=== PATIENT | female | born 1970 | race Caucasian/White ===

== ENCOUNTER 2016-08-30 09:11 | Emergency (ER) | payer BC ==
--- NOTE | 2016-08-30 12:30 | DIAGNOSTIC IMAGING REPORT ---
PROCEDURE: CT SINUS/FACIAL BONES W/CONT CLINICAL INDICATION: Left facial redness, initial encounter TECHNIQUE: 90 ml of Isovue 300 injected intravenously and axial images were obtained through the face with coronal reformations. COMPARISON: None. FINDINGS: Mild left periorbital preseptal soft tissue swelling. No evidence of an abscess. Globes and orbits are unremarkable. Nonspecific bilateral cervical lymph nodes measure 8 mm or less (short axis). Normal parotids. No evidence of a mass. Visualized brain parenchyma is unremarkable. Moderate left and mild right maxillary sinus disease. Normal TMJs. IMPRESSION: 1. Mild left periorbital preseptal soft tissue swelling without evidence of an abscess. 2. Bilateral maxillary sinus disease 3. Results discussed with Dr. Fernandes All CT scans at this facility use dose modulation, iterative reconstruction, and/or weight-based dosing when appropriate to reduce radiation dose to as low as reasonably achievable.
--- NOTE | 2016-08-30 15:03 | ED CLINICAL REPORT ---
Clinical Report - Physicians/Mid Levels [facility] [address] [place] [address] 08/30/2016 9:11 [id number] Time Seen: 10:15 Aug 30 2016. Arrived- By private vehicle. Historian- patient. CPT: ER phys charges level 4 (#[id number]). HISTORY OF PRESENT ILLNESS Chief Complaint: EYE PAIN. 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 The patient may have sustained an injury. This occurred at work. She has foreign material in the eye. Eye pain, discomfort, burning, redness and irritation. A moderate amount of thick discharge from the left eye with matting. Similar symptoms previously: Twice. Evaluation/treatment- Seen 4 days ago Thu and given gent eye drops. Seen 2 days later and found no better so given oxyfloxacin drops and oral keflex 500 bid. Pt started these yesterday, Thursday. Diagnosis: eye infection and conjunctivitis. REVIEW OF SYSTEMS No fever or sore throat. PAST HISTORY Hypertension. Abdominal Pain. Gastroenteritis. Endometriosis. Pseudotumor cerberi. Migraine Headache. Pyelonephritis. Bicuspid aortic valve. Asthma. --09:48 Arianna Farley R.N. ADDITIONAL SURGERIES: Hysterectomy. Knee Surgery. Laparoscopy. Shoulder Surgery. Medications: Vitamins/Minerals Oral. Garlic Oral. Co Q-10 Oral. Aspir-81 Oral daily. Metoprolol 25mg at bedtime. Cephalexin Oral 500 mg, 2x a day. Ofloxacin Ophthalmic (Solution 0.3 %) 2 drops, x4 daily. Allergies: Headache medications. Pain medications. Valium. SOCIAL HISTORY Never smoker. Occasional alcohol use. No drug use. ADDITIONAL NOTES The nursing notes have been reviewed. PHYSICAL EXAM Vital Signs: 08/30/2016 09:39 BP: 130/90. HR: 88. RR: 16. O2 saturation: 100%. Temp: 98.2 F. Appearance: Alert. HEENT: Ears normal. Nose normal. Pharynx normal. Head appears normal to external inspection. Rt Eye: Right eye exam normal. Eyes: Visual acuity noted- see nurse's notes. Left eyelid everted for examination. Left cornea examined with fluorescein stain. Corneas appear normal to inspection. Pupils equal, round and reactive to light. Accommodation normal. EOMs intact. Periorbital areas appear normal to inspection. Anterior chambers clear. Anterior chambers of normal depth. Lt Eye: Conjunctival edema. Injected conjunctiva. Exudate present. No eyelid edema or erythema, subconjunctival hemorrhage, conjunctival foreign body or injury to the conjunctiva. No foreign body under the eyelid. Neck: Neck supple. CVS: Normal heart rate and rhythm. Respiratory: No respiratory distress. Skin: No rash. Neuro: Oriented X 3. LABS, X-RAYS, AND EKG Note - Tests: (CT facial: mild pre-septal edema consistent with cellulitis). PROGRESS AND PROCEDURES Course of Care: Mild periorbital cellulits. No lid edema but initial treatment failure. IV NS Demerol 25 mg IV Clindamycin 600 mg IV Patient is stable. Patient/family counseled. Disposition: Discharged. Condition: stable. CLINICAL IMPRESSION Acute mucopurulent conjunctivitis of the left eye (severe and unresponsive to out patient medications.). INSTRUCTIONS (Increase your keflex to 2 pills twice a day.). Warnings: Further evaluation is necessary. GENERAL WARNINGS: Return or contact your physician immediately if your condition worsens or changes unexpectedly, if not improving as expected, or if other problems arise. Your Current Medications: STOP TAKING THE FOLLOWING MEDICATIONS: Ofloxacin Ophthalmic : Solution 0.3 %, 2 drops x4 daily. CONTINUE TAKING THE FOLLOWING MEDICATIONS: Aspir-81 Oral : daily. Cephalexin Oral : 500 mg 2x a day. Co Q-10 Oral. Garlic Oral. Metoprolol 25mg at bedtime*. Vitamins/Minerals Oral. Prescription Medications: Sulamyd ophthalmic solution 10% : Instill 2 drops into affected eye every 2 hours while awake for 1 week. Dispense fifteen (15) mL. No refills. Substitution is permissible. Oxycodone/APAP 5 mg/325 mg: take 1-2 tablets orally every 4 hours as needed for pain. Dispense fifteen (15). No refill. Bactrim DS 800 mg / 160 mg: Take 1 tablet orally every 12 hours for 7 days. Dispense fourteen (14). No refills. Substitution is permissible. 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 Understanding of the discharge instructions verbalized by patient and family. Discharge instructions reviewed with and understanding was verbalized by spouse. (Electronically signed by Ramiro Fernandes MD 09/01/2016 11:26)
--- NOTE | 2016-08-30 15:03 | ED ORDER SUMMARY ---
..... Patient: PANDA SNYDER OrderSheet [facility] VisitID: [id number] [place] [address] 46y, F Registration Date/Time: 08/30/2016 ORDER SHEET Weight: 145.1 kg (stated) Allergies: Pain medications, Valium, Headache medications GENERAL ORDERS: CT Sinus/Facial Bones w Cont (left periorbital cellulitis) Urgent (10:08/30/2016 Elda ENGLAND) (Ack 10:33 LTapper) (12:30 SReitz R.N.) CBC w Diff Urgent (10:08/30/2016 Elda ENGLAND) (Ack 10:33 LTapper) (10:55 KWilliams R.N.) CRP Urgent (10:08/30/2016 Elda ENGLAND) (Ack 10:33 LTapper) (10:55 Janethams R.N.) PCT (Procalcitonin) Urgent (10:08/30/2016 Elda ENGLAND) (Ack 10:33 LTapper) (10:55 KWtachoams R.N.) BMP Urgent (10:08/30/2016 Elda ENGLAND) (Ack 10:33 LTapper) (10:55 KWtachoams R.N.) MEDICATION ORDERS: Proparacaine Eye Drops (Solution 0.5 %) 2 drops (left eye) (10:30 08/30/2016 Elda ENGLAND) (Ack 10:32 Renata R.N.) (10:45 Renata R.N.) IV FLUIDS: IV NS : initial bolus none -, then 125 mL/hr for X1 (NOW); Routine (10:30 08/30/2016 Elda ENGLAND) (Ack 10:32 Renata R.N.) (10:56 Aniket R.N.) Clindamycin IV 600 mg/50mL (NOW) (12:50 08/30/2016 Elda ENGLAND) (Ack 12:53 Renata R.N.) (13:45 Rito R.N.) Demerol IV 25 mg (NOW) (12:57 08/30/2016 Elda ENGLAND) ([facility] 13:35 Renata R.NLarry) (13:41 Renata Fenton.Henry.) ORDER SHEET NOTES: [Electronically signed by Eyal John R.N. (15:33 08/30/2016)] [Electronically signed by Ramiro Fernandes MD (11:26 09/01/2016)] [Electronically locked/signed by Eyal John R.N. (15:33 08/30/2016)]
--- NOTE | 2016-08-30 15:03 | ED ORDER SUMMARY ---
..... Patient: PANDA SNYDER OrderSheet [facility] VisitID: [id number] [place] [address] 46y, F Registration Date/Time: 08/30/2016 ORDER SHEET Weight: 145.1 kg (stated) Allergies: Pain medications, Valium, Headache medications GENERAL ORDERS: CT Sinus/Facial Bones w Cont (left periorbital cellulitis) Urgent (10:08/30/2016 Elda ENGLAND) (Ack 10:33 LTapper) (12:30 SReitz R.N.) CBC w Diff Urgent (10:08/30/2016 Elda ENGLAND) (Ack 10:33 LTapper) (10:55 KWilliams R.N.) CRP Urgent (10:08/30/2016 Elda ENGLAND) (Ack 10:33 LTapper) (10:55 Janethams R.N.) PCT (Procalcitonin) Urgent (10:08/30/2016 Elda ENGLAND) (Ack 10:33 LTapper) (10:55 KWtachoams R.N.) BMP Urgent (10:08/30/2016 Elda ENGLAND) (Ack 10:33 LTapper) (10:55 KWtachoams R.N.) MEDICATION ORDERS: Proparacaine Eye Drops (Solution 0.5 %) 2 drops (left eye) (10:30 08/30/2016 Elda ENGLAND) (Ack 10:32 Renata R.N.) (10:45 Renata R.N.) IV FLUIDS: IV NS : initial bolus none -, then 125 mL/hr for X1 (NOW); Routine (10:30 08/30/2016 Elda ENGLAND) (Ack 10:32 Renata R.N.) (10:56 Aniket R.N.) Clindamycin IV 600 mg/50mL (NOW) (12:50 08/30/2016 Elda ENGLAND) (Ack 12:53 Renata R.N.) (13:45 Rito R.N.) Demerol IV 25 mg (NOW) (12:57 08/30/2016 Elda ENGLAND) ([facility] 13:35 Renata R.NLarry) (13:41 Renata Fenton.Henry.) ORDER SHEET NOTES: [Electronically signed by Eyal John R.N. (15:33 08/30/2016)] [Electronically signed by Ramiro Fernandes MD (11:26 09/01/2016)] [Electronically locked/signed by Eyal John R.N. (15:33 08/30/2016)]
--- NOTE | 2016-08-30 15:03 | ED NURSING NOTES ---
Clinical Report - Nurses [facility] [address] [place] [address] 08/30/2016 9:11 [id number] Triage time 09:39. Acuity: LEVEL 4. Chief Complaint: REDNESS and PAIN TO LEFT EYE. ("blisters in eye"). Alert. No acute distress. ( Pt. was seen at PCP and treated for pink eye. She is currently taking antibiotics and tetrahydrozoline for this. She is here today because she is not feeling any better.). SEPSIS SCREEN: Sepsis Screen. Negative (no infection suspected/documented). [place] COMA SCORE: [place] Coma Scale: 15- eyes open spontaneously (4); best verbal response- oriented x 4 (5); best motor response- obeys commands (6). --09:48 Arianna Farley R.N. 09:39 08/30/16. BP: 130/90. HR: 88. RR: 16. O2 saturation: 100%. Temp: 98.2 F. Pain level now 8/10. --09:48 Arianna Farley R.N. Weight: 145.1 kg stated. Height/Length: 72 inches Per Patient. BMI: 43.4. --09:42 Arianna Farley R.N. Medications Ofloxacin Ophthalmic (Solution 0.3 %) 2 drops, x4 daily. --09:45 Arianna Farley R.N. Cephalexin Oral 500 mg, 2x a day. --09:45 Arianna Farley R.N. Metoprolol 25mg at bedtime. --09:46 Arianna Farley R.N. Aspir-81 Oral daily. --09:46 Arianna Farley R.N. Co Q-10 Oral. --09:46 Arianna Farley R.N. Garlic Oral. --09:46 Arianna Farely R.N. Vitamins/Minerals Oral. --09:46 Arianna Farley R.N. Allergies Pain medications. --09:46 Arianna Farley R.N. Valium. --09:47 Arianna Farley R.N. Headache medications. --09:47 Arianna Farley R.N. History Arrived by private vehicle. Historian: patient. Accompanied by family. Primary physician (Olivia). Onset. (4 days ago). She did not sustain an injury. 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 PAST MEDICAL HX: Immunizations: up-to-date. SOCIAL HX: Never smoker. Occasional alcohol use. No drug use. No infectious disease exposure. ABUSE ASSESSMENT: Abuse assessment: The patient was asked "Do you feel safe in your home?" and "Has anyone hurt you or threatened to hurt you?". No report of abuse. SELF HARM ASSESSMENT: A self harm assessment was performed. The patient answered "no" to the question "Are you here because you tried to hurt yourself?" and "Have you recently had thoughts about harming or killing others?". NUTRITIONAL RISK ASSESSMENT: The nutritional risk assessment revealed no deficiencies. FUNCTIONAL ASSESSMENT: Functional assessment: no impairments noted. LEARNING NEEDS ASSESSMENT: The learning needs assessment revealed no barriers. --09:48 Arianna Farley R.N. PROBLEMS: Hypertension. Abdominal Pain. Gastroenteritis. Endometriosis. Pseudotumor cerberi. Migraine Headache. Pyelonephritis. Bicuspid aortic valve. Asthma. --09:48 Arianna Farley R.N. ADDITIONAL SURGERIES: Hysterectomy. Knee Surgery. Laparoscopy. Shoulder Surgery. --09:48 Arianna Farley R.N. Interventions ID band on patient. Ambulatory. --09:48 Arianna Farley R.N. PHYSICAL ASSESSMENT Ambulatory to room. GENERAL / NEURO / PSYCH: Alert. Appears in no acute distress. --09:48 Arianna Farley R.N. NURSING PROGRESS NOTES Head of bed elevated. Two patient identifiers checked. Call light placed in reach. Side rails up x 2. Bed placed in lowest position. Brakes of bed on. Patient ready for evaluation- chart flagged. --09:49 Arianna Farley R.N. 10:40 08/30/2016 One (1) unsuccessful IV access attempt including the left antecubital space. --10:45 Arianna Farley R.N. 10:45 08/30/2016 Proparacaine Eye Drops 2 drop given. Given in the left eye. Allergies verified and confirmed 5 rights. --10:45 Arianna Farley R.N. Patient and family informed about reason for wait and about plan of care. --10:45 Arianna Farley R.N. 10:51 08/30/2016 Site #1 started via IV in the left antecubital space with an 18g angiocath, with aseptic technique and good blood return; one attempt. Blood drawn: rainbow set. Labeled in the presence of the patient and sent to the lab. Saline lock flushed with 10 mL saline (IV ultrasound guidance x20 minutes). --10:56 Eyal John R.N. 10:51 08/30/2016 Started bag #1 1000 mL IV Fluids IV NS (Saline); at 125 mL/hr over 8 hour(s) via site #1. Allergies verified and confirmed 5 rights. IV patency established. IV site checked: no pain, redness, or swelling. IV flushed thoroughly pre- and post-medication administration. --10:56 Eyal John R.N. 11:34 08/30/16. BP: 150/98. HR: 80. RR: 20. O2 saturation: 100%. --11:35 Kamilla Obrien R.N. 12:00 08/30/2016 IV Fluids IV NS Discontinued: bag #1 infused. Total amount infused: 1000 mL. IV patency established. IV site checked: no pain, redness, or swelling. IV flushed thoroughly. --13:42 Arianna Farley R.N. 13:41 08/30/2016 Demerol (Meperidine HCl) IVP 25 mg given over 1 minute(s) via site #1. Allergies verified and confirmed 5 rights. IV patency established. IV site checked: no pain, redness, or swelling. IV flushed thoroughly pre- and post-medication administration. --13:41 Arianna Farley R.N. 13:42 08/30/16. BP: 109/76. HR: 73. RR: 16. O2 saturation: 100%. --13:42 Arianna Farley R.N. 13:00 08/30/2016 Started 600 mg of Clindamycin IVPB in bag #1 50 mL; at 100 mL/hr over 30 minute(s) via site #1 via IV pump. Allergies verified and confirmed 5 rights. IV patency established. IV site checked: no pain, redness, or swelling. IV flushed thoroughly pre- and post-medication administration. Completed per protocol. --13:45 Neda Raygoza R.N. 13:30 08/30/2016 Clindamycin IVPB Discontinued: bag #1 infused. Total amount infused: 50 mL. IV patency established. IV site checked: no pain, redness, or swelling. IV flushed thoroughly. --13:45 Neda Raygoza R.N. DISPOSITION / DISCHARGE 15:17. Departure time: 1516. No learning barriers present. Discharge instructions provided and reviewed with the patient and spouse. Reviewed medication(s) side effects, precautions, dosing and course information. Prescription(s) given to the patient. Patient verbalized understanding. Written instructions provided in [place] [employer]. ( verbalizes understanding to increase keflex to 2 pills BID per discharge instructions/Dr eFrnandes.). The patient was discharged by the physician. She was discharged home and accompanied by spouse. She left the Emergency Department ambulatory and via private vehicle. Spouse driving. --15:18 Eyal John R.N. 15:17 08/30/16. BP: 131/70. HR: 75. RR: 18. O2 saturation: 98% on room air. Temp: 98.7 F (oral). Pain level now 310. --15:18 Eyal John R.N. 15:15 08/30/2016 Site #1 removed upon discharge. Catheter intact. Bandage applied. --15:32 Eyal John R.N. Locked/Released at 08/30/2016 15:33 by Eyal John R.N.
--- NOTE | 2016-08-30 15:03 | ED CLINICAL REPORT ---
Clinical Report - Physicians/Mid Levels [facility] [address] [place] [address] 08/30/2016 9:11 [id number] Time Seen: 10:15 Aug 30 2016. Arrived- By private vehicle. Historian- patient. CPT: ER phys charges level 4 (#[id number]). HISTORY OF PRESENT ILLNESS Chief Complaint: EYE PAIN. 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 The patient may have sustained an injury. This occurred at work. She has foreign material in the eye. Eye pain, discomfort, burning, redness and irritation. A moderate amount of thick discharge from the left eye with matting. Similar symptoms previously: Twice. Evaluation/treatment- Seen 4 days ago Thu and given gent eye drops. Seen 2 days later and found no better so given oxyfloxacin drops and oral keflex 500 bid. Pt started these yesterday, Thursday. Diagnosis: eye infection and conjunctivitis. REVIEW OF SYSTEMS No fever or sore throat. PAST HISTORY Hypertension. Abdominal Pain. Gastroenteritis. Endometriosis. Pseudotumor cerberi. Migraine Headache. Pyelonephritis. Bicuspid aortic valve. Asthma. --09:48 Arianna Farley R.N. ADDITIONAL SURGERIES: Hysterectomy. Knee Surgery. Laparoscopy. Shoulder Surgery. Medications: Vitamins/Minerals Oral. Garlic Oral. Co Q-10 Oral. Aspir-81 Oral daily. Metoprolol 25mg at bedtime. Cephalexin Oral 500 mg, 2x a day. Ofloxacin Ophthalmic (Solution 0.3 %) 2 drops, x4 daily. Allergies: Headache medications. Pain medications. Valium. SOCIAL HISTORY Never smoker. Occasional alcohol use. No drug use. ADDITIONAL NOTES The nursing notes have been reviewed. PHYSICAL EXAM Vital Signs: 08/30/2016 09:39 BP: 130/90. HR: 88. RR: 16. O2 saturation: 100%. Temp: 98.2 F. Appearance: Alert. HEENT: Ears normal. Nose normal. Pharynx normal. Head appears normal to external inspection. Rt Eye: Right eye exam normal. Eyes: Visual acuity noted- see nurse's notes. Left eyelid everted for examination. Left cornea examined with fluorescein stain. Corneas appear normal to inspection. Pupils equal, round and reactive to light. Accommodation normal. EOMs intact. Periorbital areas appear normal to inspection. Anterior chambers clear. Anterior chambers of normal depth. Lt Eye: Conjunctival edema. Injected conjunctiva. Exudate present. No eyelid edema or erythema, subconjunctival hemorrhage, conjunctival foreign body or injury to the conjunctiva. No foreign body under the eyelid. Neck: Neck supple. CVS: Normal heart rate and rhythm. Respiratory: No respiratory distress. Skin: No rash. Neuro: Oriented X 3. LABS, X-RAYS, AND EKG Note - Tests: (CT facial: mild pre-septal edema consistent with cellulitis). PROGRESS AND PROCEDURES Course of Care: Mild periorbital cellulits. No lid edema but initial treatment failure. IV NS Demerol 25 mg IV Clindamycin 600 mg IV Patient is stable. Patient/family counseled. Disposition: Discharged. Condition: stable. CLINICAL IMPRESSION Acute mucopurulent conjunctivitis of the left eye (severe and unresponsive to out patient medications.). INSTRUCTIONS (Increase your keflex to 2 pills twice a day.). Warnings: Further evaluation is necessary. GENERAL WARNINGS: Return or contact your physician immediately if your condition worsens or changes unexpectedly, if not improving as expected, or if other problems arise. Your Current Medications: STOP TAKING THE FOLLOWING MEDICATIONS: Ofloxacin Ophthalmic : Solution 0.3 %, 2 drops x4 daily. CONTINUE TAKING THE FOLLOWING MEDICATIONS: Aspir-81 Oral : daily. Cephalexin Oral : 500 mg 2x a day. Co Q-10 Oral. Garlic Oral. Metoprolol 25mg at bedtime*. Vitamins/Minerals Oral. Prescription Medications: Sulamyd ophthalmic solution 10% : Instill 2 drops into affected eye every 2 hours while awake for 1 week. Dispense fifteen (15) mL. No refills. Substitution is permissible. Oxycodone/APAP 5 mg/325 mg: take 1-2 tablets orally every 4 hours as needed for pain. Dispense fifteen (15). No refill. Bactrim DS 800 mg / 160 mg: Take 1 tablet orally every 12 hours for 7 days. Dispense fourteen (14). No refills. Substitution is permissible. 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 Understanding of the discharge instructions verbalized by patient and family. Discharge instructions reviewed with and understanding was verbalized by spouse. (Electronically signed by Ramiro Fernandes MD 09/01/2016 11:26)
--- NOTE | 2016-08-30 15:03 | ED NURSING NOTES ---
Clinical Report - Nurses [facility] [address] [place] [address] 08/30/2016 9:11 [id number] Triage time 09:39. Acuity: LEVEL 4. Chief Complaint: REDNESS and PAIN TO LEFT EYE. ("blisters in eye"). Alert. No acute distress. ( Pt. was seen at PCP and treated for pink eye. She is currently taking antibiotics and tetrahydrozoline for this. She is here today because she is not feeling any better.). SEPSIS SCREEN: Sepsis Screen. Negative (no infection suspected/documented). [place] COMA SCORE: [place] Coma Scale: 15- eyes open spontaneously (4); best verbal response- oriented x 4 (5); best motor response- obeys commands (6). --09:48 Arianna Farley R.N. 09:39 08/30/16. BP: 130/90. HR: 88. RR: 16. O2 saturation: 100%. Temp: 98.2 F. Pain level now 8/10. --09:48 Arianna Farley R.N. Weight: 145.1 kg stated. Height/Length: 72 inches Per Patient. BMI: 43.4. --09:42 Arianna Farley R.N. Medications Ofloxacin Ophthalmic (Solution 0.3 %) 2 drops, x4 daily. --09:45 Arianna Farley R.N. Cephalexin Oral 500 mg, 2x a day. --09:45 Arianna Farley R.N. Metoprolol 25mg at bedtime. --09:46 Arianna Farley R.N. Aspir-81 Oral daily. --09:46 Arianna Farley R.N. Co Q-10 Oral. --09:46 Arianna Farley R.N. Garlic Oral. --09:46 Arianna Farley R.N. Vitamins/Minerals Oral. --09:46 Arianna Farley R.N. Allergies Pain medications. --09:46 Arianna Farley R.N. Valium. --09:47 Arianna Farley R.N. Headache medications. --09:47 Arianna Farley R.N. History Arrived by private vehicle. Historian: patient. Accompanied by family. Primary physician (Olivia). Onset. (4 days ago). She did not sustain an injury. 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 PAST MEDICAL HX: Immunizations: up-to-date. SOCIAL HX: Never smoker. Occasional alcohol use. No drug use. No infectious disease exposure. ABUSE ASSESSMENT: Abuse assessment: The patient was asked "Do you feel safe in your home?" and "Has anyone hurt you or threatened to hurt you?". No report of abuse. SELF HARM ASSESSMENT: A self harm assessment was performed. The patient answered "no" to the question "Are you here because you tried to hurt yourself?" and "Have you recently had thoughts about harming or killing others?". NUTRITIONAL RISK ASSESSMENT: The nutritional risk assessment revealed no deficiencies. FUNCTIONAL ASSESSMENT: Functional assessment: no impairments noted. LEARNING NEEDS ASSESSMENT: The learning needs assessment revealed no barriers. --09:48 Arianna Farley R.N. PROBLEMS: Hypertension. Abdominal Pain. Gastroenteritis. Endometriosis. Pseudotumor cerberi. Migraine Headache. Pyelonephritis. Bicuspid aortic valve. Asthma. --09:48 Arianna Farley R.N. ADDITIONAL SURGERIES: Hysterectomy. Knee Surgery. Laparoscopy. Shoulder Surgery. --09:48 Arianna Farley R.N. Interventions ID band on patient. Ambulatory. --09:48 Arianna Farley R.N. PHYSICAL ASSESSMENT Ambulatory to room. GENERAL / NEURO / PSYCH: Alert. Appears in no acute distress. --09:48 Arianna Farley R.N. NURSING PROGRESS NOTES Head of bed elevated. Two patient identifiers checked. Call light placed in reach. Side rails up x 2. Bed placed in lowest position. Brakes of bed on. Patient ready for evaluation- chart flagged. --09:49 Arianna Farley R.N. 10:40 08/30/2016 One (1) unsuccessful IV access attempt including the left antecubital space. --10:45 Arianna Farley R.N. 10:45 08/30/2016 Proparacaine Eye Drops 2 drop given. Given in the left eye. Allergies verified and confirmed 5 rights. --10:45 Arianna Farley R.N. Patient and family informed about reason for wait and about plan of care. --10:45 Arianna Farley R.N. 10:51 08/30/2016 Site #1 started via IV in the left antecubital space with an 18g angiocath, with aseptic technique and good blood return; one attempt. Blood drawn: rainbow set. Labeled in the presence of the patient and sent to the lab. Saline lock flushed with 10 mL saline (IV ultrasound guidance x20 minutes). --10:56 Eyal John R.N. 10:51 08/30/2016 Started bag #1 1000 mL IV Fluids IV NS (Saline); at 125 mL/hr over 8 hour(s) via site #1. Allergies verified and confirmed 5 rights. IV patency established. IV site checked: no pain, redness, or swelling. IV flushed thoroughly pre- and post-medication administration. --10:56 Eyal John R.N. 11:34 08/30/16. BP: 150/98. HR: 80. RR: 20. O2 saturation: 100%. --11:35 Kamilla Obrien R.N. 12:00 08/30/2016 IV Fluids IV NS Discontinued: bag #1 infused. Total amount infused: 1000 mL. IV patency established. IV site checked: no pain, redness, or swelling. IV flushed thoroughly. --13:42 Arianna Farley R.N. 13:41 08/30/2016 Demerol (Meperidine HCl) IVP 25 mg given over 1 minute(s) via site #1. Allergies verified and confirmed 5 rights. IV patency established. IV site checked: no pain, redness, or swelling. IV flushed thoroughly pre- and post-medication administration. --13:41 Arianna Farley R.N. 13:42 08/30/16. BP: 109/76. HR: 73. RR: 16. O2 saturation: 100%. --13:42 Arianna Farley R.N. 13:00 08/30/2016 Started 600 mg of Clindamycin IVPB in bag #1 50 mL; at 100 mL/hr over 30 minute(s) via site #1 via IV pump. Allergies verified and confirmed 5 rights. IV patency established. IV site checked: no pain, redness, or swelling. IV flushed thoroughly pre- and post-medication administration. Completed per protocol. --13:45 Neda Raygoza R.N. 13:30 08/30/2016 Clindamycin IVPB Discontinued: bag #1 infused. Total amount infused: 50 mL. IV patency established. IV site checked: no pain, redness, or swelling. IV flushed thoroughly. --13:45 Neda Raygoza R.N. DISPOSITION / DISCHARGE 15:17. Departure time: 1516. No learning barriers present. Discharge instructions provided and reviewed with the patient and spouse. Reviewed medication(s) side effects, precautions, dosing and course information. Prescription(s) given to the patient. Patient verbalized understanding. Written instructions provided in Danish. ( verbalizes understanding to increase keflex to 2 pills BID per discharge instructions/Dr Fernandes.). The patient was discharged by the physician. She was discharged home and accompanied by spouse. She left the Emergency Department ambulatory and via private vehicle. Spouse driving. --15:18 Eyal John R.N. 15:17 08/30/16. BP: 131/70. HR: 75. RR: 18. O2 saturation: 98% on room air. Temp: 98.7 F (oral). Pain level now 310. --15:18 Eyal John R.N. 15:15 08/30/2016 Site #1 removed upon discharge. Catheter intact. Bandage applied. --15:32 Eyal John R.N. Locked/Released at 08/30/2016 15:33 by Eyal John R.N.
--- NOTE | 2016-09-01 11:26 | ED DISCHARGE INSTRUCTIONS ---
Patient: PANDA SNYDER General Instructions [facility] VisitID: [id number] [place] [address] 46y, F Registration Date/Time: 08/30/2016 INSTRUCTIONS (Increase your keflex to 2 pills twice a day.). Warnings: Further evaluation is necessary. GENERAL WARNINGS: Return or contact your physician immediately if your condition worsens or changes unexpectedly, if not improving as expected, or if other problems arise. Your Current Medications: STOP TAKING THE FOLLOWING MEDICATIONS: Ofloxacin Ophthalmic : Solution 0.3 %, 2 drops x4 daily. CONTINUE TAKING THE FOLLOWING MEDICATIONS: Aspir-81 Oral : daily. Cephalexin Oral : 500 mg 2x a day. Co Q-10 Oral. Garlic Oral. Metoprolol 25mg at bedtime*. Vitamins/Minerals Oral. Prescription Medications: Sulamyd ophthalmic solution 10% : Instill 2 drops into affected eye every 2 hours while awake for 1 week. Dispense fifteen (15) mL. No refills. Substitution is permissible. Oxycodone/APAP 5 mg/325 mg: take 1-2 tablets orally every 4 hours as needed for pain. Dispense fifteen (15). No refill. Bactrim DS 800 mg / 160 mg: Take 1 tablet orally every 12 hours for 7 days. Dispense fourteen (14). No refills. Substitution is permissible. Follow-up: Follow up with an journeyman meat cutter Thursday in two days as scheduled. Understanding of the discharge instructions verbalized by patient and family. Discharge instructions reviewed with and understanding was verbalized by spouse. ADDITIONAL INFORMATION Conjunctivitis, Bacterial You have a bacterial infection in the membranes covering the eye. The most common symptoms include a thick discharge from the eye, swollen eyelids, redness, eyelids sticking together upon awakening, and a gritty or scratchy feeling in the eye. The infection takes about 7-10 days to resolve with treatment. Home Care: Use prescribed eyedrops or ointment as directed to treat the infection. Apply a warm pack (towel soaked in warm water) to the affected eye 3-4 times a day. Do this just before applying medicine to the eye. Use a warm, wet cloth to wipe away crusting of the eyelids in the morning. This is caused by mucus drainage during the night. You may also use saline irrigating solution or artificial tears to rinse away mucus inside the eye. Do not put a patch over the eye. Wash your hands before and after touching the infected eye. This is to prevent spreading the infection to the other eye, and to other people. Do not share your towels or washcloths with others. You may use acetaminophen (Tylenol) or ibuprofen (Motrin, Advil) to control pain, unless another medicine was prescribed. [NOTE: If you have chronic liver or kidney disease or ever had a stomach ulcer or GI bleeding, talk with your doctor before using these medicines.] Do not wear contact lenses until your eyes have healed and all symptoms are gone. Follow Up with your doctor or this facility as directed, or if there has not been improvement within 5 days. Get Prompt Medical Attention if any of the following occur: Worsening vision Increasing pain in the eye Increasing swelling or redness of the eyelid Redness spreading around the eye Oxycodone Hydrochloride, Acetaminophen Oral tablet What is this medicine? ACETAMINOPHEN; OXYCODONE (a set a YANIQUE kika fen; ox i KOE done) is a pain reliever. It is used to treat mild to moderate pain. How should I use this medicine? Take this medicine by mouth with a full glass of water. Follow the directions on the prescription label. Take your medicine at regular intervals. Do not take your medicine more often than directed. Talk to your multiple spindle router operator regarding the use of this medicine in children. Special care may be needed. Patients over 65 years old may have a stronger reaction and need a smaller dose. What side effects may I notice from receiving this medicine? Side effects that you should report to your doctor or health hospice care sales consultant as soon as possible: allergic reactions like skin rash, itching or hives, swelling of the face, lips, or tongue breathing difficulties, wheezing confusion light headedness or fainting spells severe stomach pain yellowing of the skin or the whites of the eyes Side effects that usually do not require medical attention (report to your doctor or health hospice care sales consultant if they continue or are bothersome): dizziness drowsiness nausea vomiting What may interact with this medicine? alcohol antihistamines barbiturates like amobarbital, butalbital, butabarbital, methohexital, pentobarbital, phenobarbital, thiopental, and secobarbital benztropine drugs for bladder problems like solifenacin, trospium, oxybutynin, tolterodine, hyoscyamine, and methscopolamine drugs for breathing problems like ipratropium and tiotropium drugs for certain stomach or intestine problems like propantheline, homatropine methylbromide, glycopyrrolate, atropine, belladonna, and dicyclomine general anesthetics like etomidate, ketamine, nitrous oxide, propofol, desflurane, enflurane, halothane, isoflurane, and sevoflurane medicines for depression, anxiety, or psychotic disturbances medicines for sleep muscle relaxants naltrexone narcotic medicines (opiates) for pain phenothiazines like perphenazine, thioridazine, chlorpromazine, mesoridazine, fluphenazine, prochlorperazine, promazine, and trifluoperazine scopolamine tramadol trihexyphenidyl What if I miss a dose? If you miss a dose, take it as soon as you can. If it is almost time for your next dose, take only that dose. Do not take double or extra doses. Where should I keep my medicine? Keep out of the reach of children. This medicine can be abused. Keep your medicine in a safe place to protect it from theft. Do not share this medicine with anyone. Selling or giving away this medicine is dangerous and against the law. Store at room temperature between 20 and 25 degrees C (68 and 77 degrees F). Keep container tightly closed. Protect from light. This medicine may cause accidental overdose and if it is taken by other adults, children, or pets. Flush any unused medicine down the toilet to reduce the chance of harm. Do not use the medicine after the expiration date. What should I tell my health care provider before I take this medicine? They need to know if you have any of these conditions: brain tumor Crohn's disease, inflammatory bowel disease, or ulcerative colitis drink more than 3 alcohol containing drinks per day drug abuse or addiction head injury heart or circulation problems kidney disease or problems going to the bathroom liver disease lung disease, asthma, or breathing problems an unusual or allergic reaction to acetaminophen, oxycodone, other opioid analgesics, other medicines, foods, dyes, or preservatives or trying to get breast-feeding What should I watch for while using this medicine? Tell your doctor or health hospice care sales consultant if your pain does not go away, if it gets worse, or if you have new or a different type of pain. You may develop tolerance to the medicine. Tolerance means that you will need a higher dose of the medication for pain relief. Tolerance is normal and is expected if you take this medicine for a long time. Do not suddenly stop taking your medicine because you may develop a severe reaction. Your body becomes used to the medicine. This does NOT mean you are addicted. Addiction is a behavior related to getting and using a drug for a non-medical reason. If you have pain, you have a medical reason to take pain medicine. Your doctor will tell you how much medicine to take. If your doctor wants you to stop the medicine, the dose will be slowly lowered over time to avoid any side effects. You may get drowsy or dizzy. Do not drive, use machinery, or do anything that needs mental alertness until you know how this medicine affects you. Do not stand or sit up quickly, especially if you are an older patient. This reduces the risk of dizzy or fainting spells. Alcohol may interfere with the effect of this medicine. Avoid alcoholic drinks. There are different types of narcotic medicines (opiates) for pain. If you take more than one type at the same time, you may have more side effects. Give your health care provider a list of all medicines you use. Your doctor will tell you how much medicine to take. Do not take more medicine than directed. Call emergency for help if you have problems breathing. The medicine will cause constipation. Try to have a bowel movement at least every 2 to 3 days. If you do not have a bowel movement for 3 days, call your doctor or health hospice care sales consultant. Do not take Tylenol (acetaminophen) or medicines that have acetaminophen with this medicine. Too much acetaminophen can be very dangerous. Many nonprescription medicines contain acetaminophen. Always read the labels carefully to avoid taking more acetaminophen. You have been given the following additional information: Conjunctivitis, Bacterial Oxycodone Hydrochloride, Acetaminophen Oral tablet (Electronically signed by Ramiro Fernandes MD 09/01/2016 11:26)
--- NOTE | 2016-09-01 11:26 | ED MED RECONCILIATION SUMMARY ---
Patient: PANDA SNYDER Medication Reconciliation Report [facility] VisitID: [id number] [address] [place] [address] 46y, F Registration Date/Time: 08/30/2016 Weight: 145.1 kg Height/Length: 72 in. BMI: 43.4 ALLERGIES: Headache medications, Pain medications, Valium The patient's Home Medications are listed below: STOP TAKING THE FOLLOWING MEDICATIONS: Ofloxacin Ophthalmic (0.3 %) 2 drops, x4 daily CONTINUE TAKING THE FOLLOWING MEDICATIONS: Aspir-81 Oral daily Cephalexin Oral 500 mg, 2x a day Co Q-10 Oral Garlic Oral Metoprolol 25mg at bedtime Vitamins/Minerals Oral The source(s) of the original Home Medication information: Not obtained. The following Medications were given to the patient in the Emergency Department: Proparacaine [Eye Drops] Eye Drops 2 drop, administered: 08/30/2016 10:45:00 AM IV NS IV Fluids bolus 0, then 125 mL/hr, administered: 08/30/2016 10:51:00 AM Demerol [IVP] IVP 25 mg, administered: 08/30/2016 1:41:00 PM Clindamycin [IVPB] IVPB bolus 0, then 600 mg 100 mL/hr, administered: 08/30/2016 1:00:00 PM The following Medications were prescribed to the patient: Sulamyd ophthalmic solution 10% : Instill 2 drops into affected eye every 2 hours while awake for 1 week. Dispense fifteen (15) mL. No refills. Substitution is permissible. -- Ramiro Fernandes MD Oxycodone/APAP 5 mg/325 mg: take 1-2 tablets orally every 4 hours as needed for pain. Dispense fifteen (15). No refill. -- Ramiro Fernandes MD Bactrim DS 800 mg / 160 mg: Take 1 tablet orally every 12 hours for 7 days. Dispense fourteen (14). No refills. Substitution is permissible. -- Ramiro Fernandes MD
--- NOTE | 2016-09-01 11:26 | ED DISCHARGE INSTRUCTIONS ---
Patient: PANDA SNYDER General Instructions [facility] VisitID: [id number] [place] [address] 46y, F Registration Date/Time: 08/30/2016 INSTRUCTIONS (Increase your keflex to 2 pills twice a day.). Warnings: Further evaluation is necessary. GENERAL WARNINGS: Return or contact your physician immediately if your condition worsens or changes unexpectedly, if not improving as expected, or if other problems arise. Your Current Medications: STOP TAKING THE FOLLOWING MEDICATIONS: Ofloxacin Ophthalmic : Solution 0.3 %, 2 drops x4 daily. CONTINUE TAKING THE FOLLOWING MEDICATIONS: Aspir-81 Oral : daily. Cephalexin Oral : 500 mg 2x a day. Co Q-10 Oral. Garlic Oral. Metoprolol 25mg at bedtime*. Vitamins/Minerals Oral. Prescription Medications: Sulamyd ophthalmic solution 10% : Instill 2 drops into affected eye every 2 hours while awake for 1 week. Dispense fifteen (15) mL. No refills. Substitution is permissible. Oxycodone/APAP 5 mg/325 mg: take 1-2 tablets orally every 4 hours as needed for pain. Dispense fifteen (15). No refill. Bactrim DS 800 mg / 160 mg: Take 1 tablet orally every 12 hours for 7 days. Dispense fourteen (14). No refills. Substitution is permissible. Follow-up: Follow up with an ui ux web developer Thursday in two days as scheduled. Understanding of the discharge instructions verbalized by patient and family. Discharge instructions reviewed with and understanding was verbalized by spouse. ADDITIONAL INFORMATION Conjunctivitis, Bacterial You have a bacterial infection in the membranes covering the eye. The most common symptoms include a thick discharge from the eye, swollen eyelids, redness, eyelids sticking together upon awakening, and a gritty or scratchy feeling in the eye. The infection takes about 7-10 days to resolve with treatment. Home Care: Use prescribed eyedrops or ointment as directed to treat the infection. Apply a warm pack (towel soaked in warm water) to the affected eye 3-4 times a day. Do this just before applying medicine to the eye. Use a warm, wet cloth to wipe away crusting of the eyelids in the morning. This is caused by mucus drainage during the night. You may also use saline irrigating solution or artificial tears to rinse away mucus inside the eye. Do not put a patch over the eye. Wash your hands before and after touching the infected eye. This is to prevent spreading the infection to the other eye, and to other people. Do not share your towels or washcloths with others. You may use acetaminophen (Tylenol) or ibuprofen (Motrin, Advil) to control pain, unless another medicine was prescribed. [NOTE: If you have chronic liver or kidney disease or ever had a stomach ulcer or GI bleeding, talk with your doctor before using these medicines.] Do not wear contact lenses until your eyes have healed and all symptoms are gone. Follow Up with your doctor or this facility as directed, or if there has not been improvement within 5 days. Get Prompt Medical Attention if any of the following occur: Worsening vision Increasing pain in the eye Increasing swelling or redness of the eyelid Redness spreading around the eye Oxycodone Hydrochloride, Acetaminophen Oral tablet What is this medicine? ACETAMINOPHEN; OXYCODONE (a set a YANIQUE kika fen; ox i KOE done) is a pain reliever. It is used to treat mild to moderate pain. How should I use this medicine? Take this medicine by mouth with a full glass of water. Follow the directions on the prescription label. Take your medicine at regular intervals. Do not take your medicine more often than directed. Talk to your center punch operator regarding the use of this medicine in children. Special care may be needed. Patients over 65 years old may have a stronger reaction and need a smaller dose. What side effects may I notice from receiving this medicine? Side effects that you should report to your doctor or health life care planner as soon as possible: allergic reactions like skin rash, itching or hives, swelling of the face, lips, or tongue breathing difficulties, wheezing confusion light headedness or fainting spells severe stomach pain yellowing of the skin or the whites of the eyes Side effects that usually do not require medical attention (report to your doctor or health life care planner if they continue or are bothersome): dizziness drowsiness nausea vomiting What may interact with this medicine? alcohol antihistamines barbiturates like amobarbital, butalbital, butabarbital, methohexital, pentobarbital, phenobarbital, thiopental, and secobarbital benztropine drugs for bladder problems like solifenacin, trospium, oxybutynin, tolterodine, hyoscyamine, and methscopolamine drugs for breathing problems like ipratropium and tiotropium drugs for certain stomach or intestine problems like propantheline, homatropine methylbromide, glycopyrrolate, atropine, belladonna, and dicyclomine general anesthetics like etomidate, ketamine, nitrous oxide, propofol, desflurane, enflurane, halothane, isoflurane, and sevoflurane medicines for depression, anxiety, or psychotic disturbances medicines for sleep muscle relaxants naltrexone narcotic medicines (opiates) for pain phenothiazines like perphenazine, thioridazine, chlorpromazine, mesoridazine, fluphenazine, prochlorperazine, promazine, and trifluoperazine scopolamine tramadol trihexyphenidyl What if I miss a dose? If you miss a dose, take it as soon as you can. If it is almost time for your next dose, take only that dose. Do not take double or extra doses. Where should I keep my medicine? Keep out of the reach of children. This medicine can be abused. Keep your medicine in a safe place to protect it from theft. Do not share this medicine with anyone. Selling or giving away this medicine is dangerous and against the law. Store at room temperature between 20 and 25 degrees C (68 and 77 degrees F). Keep container tightly closed. Protect from light. This medicine may cause accidental overdose and if it is taken by other adults, children, or pets. Flush any unused medicine down the toilet to reduce the chance of harm. Do not use the medicine after the expiration date. What should I tell my health care provider before I take this medicine? They need to know if you have any of these conditions: brain tumor Crohn's disease, inflammatory bowel disease, or ulcerative colitis drink more than 3 alcohol containing drinks per day drug abuse or addiction head injury heart or circulation problems kidney disease or problems going to the bathroom liver disease lung disease, asthma, or breathing problems an unusual or allergic reaction to acetaminophen, oxycodone, other opioid analgesics, other medicines, foods, dyes, or preservatives or trying to get breast-feeding What should I watch for while using this medicine? Tell your doctor or health life care planner if your pain does not go away, if it gets worse, or if you have new or a different type of pain. You may develop tolerance to the medicine. Tolerance means that you will need a higher dose of the medication for pain relief. Tolerance is normal and is expected if you take this medicine for a long time. Do not suddenly stop taking your medicine because you may develop a severe reaction. Your body becomes used to the medicine. This does NOT mean you are addicted. Addiction is a behavior related to getting and using a drug for a non-medical reason. If you have pain, you have a medical reason to take pain medicine. Your doctor will tell you how much medicine to take. If your doctor wants you to stop the medicine, the dose will be slowly lowered over time to avoid any side effects. You may get drowsy or dizzy. Do not drive, use machinery, or do anything that needs mental alertness until you know how this medicine affects you. Do not stand or sit up quickly, especially if you are an older patient. This reduces the risk of dizzy or fainting spells. Alcohol may interfere with the effect of this medicine. Avoid alcoholic drinks. There are different types of narcotic medicines (opiates) for pain. If you take more than one type at the same time, you may have more side effects. Give your health care provider a list of all medicines you use. Your doctor will tell you how much medicine to take. Do not take more medicine than directed. Call emergency for help if you have problems breathing. The medicine will cause constipation. Try to have a bowel movement at least every 2 to 3 days. If you do not have a bowel movement for 3 days, call your doctor or health life care planner. Do not take Tylenol (acetaminophen) or medicines that have acetaminophen with this medicine. Too much acetaminophen can be very dangerous. Many nonprescription medicines contain acetaminophen. Always read the labels carefully to avoid taking more acetaminophen. You have been given the following additional information: Conjunctivitis, Bacterial Oxycodone Hydrochloride, Acetaminophen Oral tablet (Electronically signed by Ramiro Fernandes MD 09/01/2016 11:26)
--- NOTE | 2016-09-01 11:26 | ED MED RECONCILIATION SUMMARY ---
Patient: PANDA SNYDER Medication Reconciliation Report [facility] VisitID: [id number] [address] [place] [address] 46y, F Registration Date/Time: 08/30/2016 Weight: 145.1 kg Height/Length: 72 in. BMI: 43.4 ALLERGIES: Headache medications, Pain medications, Valium The patient's Home Medications are listed below: STOP TAKING THE FOLLOWING MEDICATIONS: Ofloxacin Ophthalmic (0.3 %) 2 drops, x4 daily CONTINUE TAKING THE FOLLOWING MEDICATIONS: Aspir-81 Oral daily Cephalexin Oral 500 mg, 2x a day Co Q-10 Oral Garlic Oral Metoprolol 25mg at bedtime Vitamins/Minerals Oral The source(s) of the original Home Medication information: Not obtained. The following Medications were given to the patient in the Emergency Department: Proparacaine [Eye Drops] Eye Drops 2 drop, administered: 08/30/2016 10:45:00 AM IV NS IV Fluids bolus 0, then 125 mL/hr, administered: 08/30/2016 10:51:00 AM Demerol [IVP] IVP 25 mg, administered: 08/30/2016 1:41:00 PM Clindamycin [IVPB] IVPB bolus 0, then 600 mg 100 mL/hr, administered: 08/30/2016 1:00:00 PM The following Medications were prescribed to the patient: Sulamyd ophthalmic solution 10% : Instill 2 drops into affected eye every 2 hours while awake for 1 week. Dispense fifteen (15) mL. No refills. Substitution is permissible. -- Ramiro Fernandes MD Oxycodone/APAP 5 mg/325 mg: take 1-2 tablets orally every 4 hours as needed for pain. Dispense fifteen (15). No refill. -- Ramiro Fernandes MD Bactrim DS 800 mg / 160 mg: Take 1 tablet orally every 12 hours for 7 days. Dispense fourteen (14). No refills. Substitution is permissible. -- Ramiro Fernandes MD
--- NOTE | 2016-09-01 11:26 | ED MAR SUMMARY ---
..... Medication Administration Record [facility] [address] [place] [address] Patient: PANDA SNYDER Visit ID: [id number] 46y, F Weight: 145.1 kg Height/Length: 72 in BMI: 43.4 ALLERGIES: Headache medications, Valium, Pain medications Given 10:45 08/30/2016 Arianna Farley R.N. Medication Administered: PROPARACAINE [EYE DROPS], Dose: 2 drop Eye Drops. Medication Ordered: Proparacaine Eye Drops (Solution 0.5 %) 2 drops (left eye). Start 10:51 08/30/2016 Eyal John R.N., Stop 12:00 08/30/2016 Arianna Farley R.N. Medication Administered: IV NS (SALINE), Dose: IV Fluids over 8 hour(s), Rate: 125 mL/hr, Dispensed: 1000 mL bag, Site: #1 left AC. Medication Ordered: IV NS : initial bolus none -, then 125 mL/hr for X1 (NOW); Routine. Start 13:00 08/30/2016 Neda Raygoza R.N., Stop 13:30 08/30/2016 Neda Raygoza R.N. Medication Administered: CLINDAMYCIN [IVPB], Dose: 600 mg IVPB over 30 minute(s), Rate: 100 mL/hr, Dispensed: 50 mL bag, Site: #1 left AC. Medication Ordered: Clindamycin IV 600 mg/50mL (NOW). Given 13:41 08/30/2016 Arianna Farley R.N. Medication Administered: DEMEROL [IVP] (MEPERIDINE HCL), Dose: 25 mg IVP over 1 minute(s), Site: #1 left AC. Medication Ordered: Demerol IV 25 mg (NOW).
--- NOTE | 2016-09-01 11:26 | ED MAR SUMMARY ---
..... Medication Administration Record [facility] [address] [place] [address] Patient: PANDA SNYDER Visit ID: [id number] 46y, F Weight: 145.1 kg Height/Length: 72 in BMI: 43.4 ALLERGIES: Headache medications, Valium, Pain medications Given 10:45 08/30/2016 Arianna Farley R.N. Medication Administered: PROPARACAINE [EYE DROPS], Dose: 2 drop Eye Drops. Medication Ordered: Proparacaine Eye Drops (Solution 0.5 %) 2 drops (left eye). Start 10:51 08/30/2016 Eyal John R.N., Stop 12:00 08/30/2016 Arianna Farley R.N. Medication Administered: IV NS (SALINE), Dose: IV Fluids over 8 hour(s), Rate: 125 mL/hr, Dispensed: 1000 mL bag, Site: #1 left AC. Medication Ordered: IV NS : initial bolus none -, then 125 mL/hr for X1 (NOW); Routine. Start 13:00 08/30/2016 Neda Raygoza R.N., Stop 13:30 08/30/2016 Neda Raygoza R.N. Medication Administered: CLINDAMYCIN [IVPB], Dose: 600 mg IVPB over 30 minute(s), Rate: 100 mL/hr, Dispensed: 50 mL bag, Site: #1 left AC. Medication Ordered: Clindamycin IV 600 mg/50mL (NOW). Given 13:41 08/30/2016 Arianna Farley R.N. Medication Administered: DEMEROL [IVP] (MEPERIDINE HCL), Dose: 25 mg IVP over 1 minute(s), Site: #1 left AC. Medication Ordered: Demerol IV 25 mg (NOW).
== END 2016-08-30 15:17 | disposition home or self-care (01) ==
LOC: ED SRH 09:11
DX: L03.213 Periorbital cellulitis (principal); H10.022 Other mucopurulent conjunctivitis, left eye; Z79.899 Other long term (current) drug therapy; Z88.8 Allergy status to other drugs, medicaments and biological substances; Z88.5 Allergy status to narcotic agent
CPT/HCPCS: 90047; 91585; 93004; 95059

== ENCOUNTER 2016-09-21 20:32 | Emergency (ER) | payer BC ==
--- NOTE | 2016-09-21 21:45 | DIAGNOSTIC IMAGING REPORT ---
PROCEDURE: XR CHEST 2 VIEW INDICATION: SOB TECHNIQUE: PA and lateral views. COMPARISON: None. FINDINGS: Allowing for overlying wires and electrodes, lungs are clear. Heart and mediastinum are normal. Mild degenerative change of the thoracic spine. IMPRESSION: 1. Negative chest.
--- NOTE | 2016-09-21 22:41 | ED ORDER SUMMARY ---
..... Patient: PANDA SNYDER OrderSheet VisitID: [id number] [address] [place] [address] 46y, F Registration Date/Time: 09/21/2016 ORDER SHEET Weight: 146.9 kg (stated) Allergies: Headache medications, Pain medications, Valium, Morphine and Related, Dilaudid GENERAL ORDERS: Chest 2V Urgent (21:09/21/2016 Praveen Randolph) (Ack 21:32 SRedarryn) (21:34 Lupillo) Canine Service Teacher (Continuous) (SOB) (:09/21/2016 Praveen Randolph) (21:28 JQuivey R.N.) CBC w Diff Urgent (21:09/21/2016 Praveen Randolph) (Ack 21:32 Gaudencio) (21:41 JQuivey R.N.) CMP Urgent (21:09/21/2016 Praveen Randolph) (Ack 21:32 SRedarryn) (21:42 JQuivey R.N.) UA-Culture if indicated Urgent (21:13 09/21/2016 Praveen Randolph) (21:28 JQuivey R.N.) D-Dimer Urgent (21:09/21/2016 Praveen Randolph) (Ack 21:32 SRedarryn) (21:42 JQuivey R.N.) Urine Urgent (21:09/21/2016 Praveen Randolph) (Ack 21:32 Gaudencio) (21:34 JQuivey R.N.) Troponin-I Urgent (21:09/21/2016 Praveen Randolph) (Ack 21:32 SRedarryn) (21:42 JQuivey R.N.) Pulse oximeter (:09/21/2016 Praveen Randolph) (21:28 JQuivey R.N.) EKG - ER Stat (:09/21/2016 Praveen Randolph) (21:28 JQuivey R.N.) MEDICATION ORDERS: DuoNeb Neb Tx 1 unit dose (NOW) (21:09/21/2016 Praveen Randolph) (Ack 21:29 Damian Fenton.NLrary) (21:41 Satnam R.N.) IV FLUIDS: IV Saline Lock (21:13 09/21/2016 Praveen Randolph) (21:41 Satnam R.N.) Solu-MEDROL IV 125 mg (NOW) (22:39 09/21/2016 Faye KIRBY) (Ack 22:41 Satnam Fenton.N.) (22:44 Satnam R.N.) ORDER SHEET NOTES: [Electronically signed by Miles De Santiago R.N. (23:05 09/21/2016)] [Electronically signed by Julio Hart DO (03:07 09/22/2016)] [Electronically locked/signed by Miles De Santiago R.N. (23:05 09/21/2016)]
--- NOTE | 2016-09-21 22:41 | ED ORDER SUMMARY ---
..... Patient: PANDA SNYDER OrderSheet [facility] VisitID: [id number] [address] [place] [address] 46y, F Registration Date/Time: 09/21/2016 ORDER SHEET Weight: 146.9 kg (stated) Allergies: Headache medications, Pain medications, Valium, Morphine and Related, Dilaudid GENERAL ORDERS: Chest 2V Urgent (21:09/21/2016 Praveen Randolph) (Ack 21:32 SRedarryn) (21:34 Lupillo) Oxygraph Operator (Continuous) (SOB) (:09/21/2016 Praveen Randolph) (21:28 JQuivey R.N.) CBC w Diff Urgent (21:09/21/2016 Praveen Randolph) (Ack 21:32 Gaudencio) (21:41 JQuivey R.N.) CMP Urgent (21:09/21/2016 Praveen Randolph) (Ack 21:32 SRedarryn) (21:42 JQuivey R.N.) UA-Culture if indicated Urgent (21:13 09/21/2016 Praveen Randolph) (21:28 JQuivey R.N.) D-Dimer Urgent (21:09/21/2016 Praveen Randolph) (Ack 21:32 SRedarryn) (21:42 JQuivey R.N.) Urine Urgent (21:09/21/2016 Praveen Randolph) (Ack 21:32 Gaudencio) (21:34 JQuivey R.N.) Troponin-I Urgent (21:09/21/2016 Praveen Randolph) (Ack 21:32 SRedarryn) (21:42 JQuivey R.N.) Pulse oximeter (:09/21/2016 Praveen Randolph) (21:28 JQuivey R.N.) EKG - ER Stat (:09/21/2016 Praveen Randolph) (21:28 JQuivey R.N.) MEDICATION ORDERS: DuoNeb Neb Tx 1 unit dose (NOW) (21:09/21/2016 Praveen Randolph) (Ack 21:29 Damian Fenton.NLarry) (21:41 Satnam R.N.) IV FLUIDS: IV Saline Lock (21:13 09/21/2016 Praveen Randolph) (21:41 Satnam R.N.) Solu-MEDROL IV 125 mg (NOW) (22:39 09/21/2016 Faye KIRBY) (Ack 22:41 Satnam Fenton.N.) (22:44 Satnam R.N.) ORDER SHEET NOTES: [Electronically signed by Miles De Santiago R.N. (23:05 09/21/2016)] [Electronically signed by Julio Hart DO (03:07 09/22/2016)] [Electronically locked/signed by Miles De Santiago R.N. (23:05 09/21/2016)]
--- NOTE | 2016-09-21 22:41 | ED NURSING NOTES ---
Clinical Report - Nurses [facility] [address] [place] [address] 09/21/2016 20:32 Patient: PANDA SNYDER TRIAGE Triage time 20:38. Acuity: LEVEL 4. Chief Complaint: SHORTNESS OF BREATH and DIFFICULTY BREATHING. 20:43. Alert. SEPSIS SCREEN: Sepsis Screen. Negative (no infection suspected/documented). --20:43 Miles De Santiago R.N. 20:36 09/21/16. BP: 170/85. HR: 122. RR: 18. O2 saturation: 100% on room air. Temp: 98 F (oral). Pain level now: 08/29. --20:43 Miles De Santiago R.N. Weight: 146.9 kg stated. Height/Length: 72 inches Per Patient. BMI: 44. --20:42 Miles De Santiago R.N. Medications Aspir-81 Oral daily. Co Q-10 Oral. Garlic Oral. Metoprolol 25mg at bedtime. Ofloxacin Ophthalmic (Solution 0.3 %) 2 drops, x4 daily. Vitamins/Minerals Oral. --20:40 Miles De Santiago R.N. Augmentin Oral (Tablet 875-125 mg) 1 tablet, 2x a day. --20:40 Miles De Santiago R.N. Medication/allergy information source: the patient. --20:43 Miles De Santiago R.N. Allergies Headache medications. Pain medications. Valium. --20:40 Miles De Santiago R.N. Morphine and Related. --20:40 Miles De Santiago R.N. Dilaudid. --20:40 Miles De Santiago R.N. History Arrived by private vehicle, and unaccompanied. Primary physician (Elle). This started today. ( Patient reports increasing SOB today, is currently being treated for sinus infection and is having sinus surgery on 10-09-16). 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 PAST MEDICAL HX: Immunizations: up-to-date. The patient has had a hysterectomy. SOCIAL HX: Never smoker. Occasional alcohol use. No drug use. No infectious disease exposure. ABUSE ASSESSMENT: No report of abuse. FALL RISK ASSESSMENT: Fall risk assessment completed. No fall risk identified. NUTRITIONAL RISK ASSESSMENT: The nutritional risk assessment revealed no deficiencies. FUNCTIONAL ASSESSMENT: Functional assessment: no impairments noted. LEARNING NEEDS ASSESSMENT: The learning needs assessment revealed no barriers. SKIN INTEGRITY ASSESSMENT: Skin integrity risk assessment completed. No skin integrity risk identified. --20:43 Miles De Santiago R.N. PROBLEMS: Hypertension. Gastroenteritis. Endometriosis. Pseudotumor cerberi. Migraine Headache. Pyelonephritis. Bicuspid aortic valve. Asthma. --20:41 Miles De Santiago R.N. ADDITIONAL SURGERIES: Hysterectomy. Knee Surgery. Laparoscopy. Shoulder Surgery. --20:41 Miles De Santiago R.N. Interventions ID band on patient. To treatment room. --20:43 Miles De Santiago R.N. PHYSICAL ASSESSMENT Ambulatory to room. Patient gowned. GENERAL / NEURO / PSYCH: Alert. Oriented X 4. HEENT: Mucous membranes are pink. RESPIRATORY: The patient can speak in full sentences. Cough. SKIN: Skin is warm and dry. Normal skin turgor. --20:44 Miles De Santiago R.N. NURSING PROGRESS NOTES 20:44. Head of bed elevated. Two patient identifiers checked. Call light placed in reach. Bed placed in lowest position. Brakes of bed on. Patient ready for evaluation- chart flagged. --20:44 Miles De Santiago R.N. 20:45. Patient ID band checked for patient name and birthdate: patient confirmed. Clean catch urine collected with return of yellow-colored clear urine; sample sent to lab for urinalysis. Specimen labeled in the presence of the patient. --21:27 Miles De Santiago R.N. EKG time: (2120). EKG was ordered, performed by a tech and shown to the ED physician. --21:30 Mor Warren, ER Pediatric Physical Therapy Assistant 21:31. Patient transported to radiology by stretcher with tech. --21:31 Miles De Santiago R.N. 21:35 09/21/2016 Site #1 started via IV in the left wrist with an 20g angiocath, with aseptic technique and good blood return; one attempt. Blood drawn: rainbow set. Labeled in the presence of the patient and sent to the lab. Saline lock flushed with 10 mL saline. --21:41 Miles De Santiago R.N. 21:36 09/21/2016 Duoneb (Ipratropium-Albuterol) Neb TX 1 unit dose given. Given by the respiratory therapist. Allergies verified and confirmed 5 rights. --21:41 Miles De Santiago R.N. 21:35. Patient returned from radiology by stretcher with tech. --21:42 Miles De Santiago R.N. 21:35 RT with pt for eval and breathing treatment. --21:42 Miles De Santiago R.N. 22:19 09/21/16. BP: 127/65. HR: 82. RR: 17. O2 saturation: 100% on room air. --22:20 Miles De Santiago R.N. Cardiac rhythm: sinus rhythm; PVCs. The patient is calm and resting quietly. RESPIRATORY: No respiratory distress. SKIN: Skin is warm and dry. Skin color within normal limits. --22:20 Miles De Santiago R.N. 22:42 09/21/2016 SOLU-MEDROL (MethylPREDNISolone Sodium Succ) IVP 125 mg given over 2 minute(s) via site #1. Allergies verified and confirmed 5 rights. IV patency established. IV site checked: no pain, redness, or swelling. IV flushed thoroughly pre- and post-medication administration. --22:44 Miles De Santiago R.N. 22:56. The patient is calm and resting quietly. RESPIRATORY: No respiratory distress. SKIN: Skin is warm and dry. Skin color within normal limits. --23:00 Miles De Santiago R.N. DISPOSITION / DISCHARGE 22:51 09/21/2016 Site #1 removed upon discharge. Catheter intact. Bandage applied. --22:58 Miles De Santiago R.N. Departure time: 22:58. Condition at departure: stable. No learning barriers present. Discharge instructions provided and reviewed with the patient. Reviewed medication(s) side effects, precautions, dosing and course information. Prescription(s) given to the patient. Patient verbalized understanding. Written instructions provided in [place]. The patient was discharged home and unaccompanied at time of discharge. She left the Emergency Department ambulatory and via private vehicle. Patient driving. FALL RISK ASSESSMENT: Fall risk assessment completed. No fall risk identified. --23:00 Miles De Santiago R.N. 22:44 09/21/16. BP: 134/78. HR: 86. RR: 17. O2 saturation: 95% on room air. Pain level now: 0/10. --23:00 Miles De Santiago R.N. Locked/Released at 09/21/2016 23:05 by Miles De Santiago R.N.
--- NOTE | 2016-09-21 22:41 | ED CLINICAL REPORT ---
Clinical Report - Physicians/Mid Levels [facility] [address] [place] [address] 09/21/2016 20:32 Patient: PANDA SNYDER Time Seen: 20:45. Arrived- By private vehicle. Historian- patient. HISTORY OF PRESENT ILLNESS Chief Complaint: DYSPNEA and HISTORY OF ASTHMA. This started today and is still present. It was gradual in onset and has been waxing/waning. The dyspnea is described as moderate and is worsened by walking, is improved by rest and is improved with oxygen. The patient has had a cough, wheezing and dyspnea on exertion. No sputum production, fever, sweating episodes, chills or chest pain. No orthopnea, paroxysmal nocturnal dyspnea, anxiety, dizziness or palpitations. Similar symptoms previously: Recent medical care: The patient was seen recently at this facility and another facility in the emergency department and a clinic. ( Pt has recently had an extensive cardiac work up including prolonged cardiac monitoring and echocardiogram - frequent PVC's and bicuspid aortic valve noted). REVIEW OF SYSTEMS The patient has had a hysterectomy. She has had sinus drainage but not had weight loss. No muscle aches, eye irritation, sore throat, nasal discharge or nausea. No vomiting, abdominal pain, diarrhea, black stools or bloody stools. No headache, fainting episodes, difficulty with urination, skin rash or enlarged lymph nodes. Denies current . All systems otherwise negative, except as recorded above. PAST HISTORY Hypertension. Abdominal Pain. Gastroenteritis. Endometriosis. Pseudotumor cerberi. Migraine Headache. Pyelonephritis. Bicuspid aortic valve. Asthma. Sinus problems PVC - frequent Acute mucopurulent conjunctivitis Obesity. Obstructive Sleep Apnea - uses CPAP at night SURGERIES: Hysterectomy. Knee Surgery. Laparoscopy. Shoulder Surgery. No history of congestive heart failure, deep venous thrombosis or pulmonary embolism. SOCIAL HISTORY Never smoker. Occasional alcohol use. No drug use. FAMILY HISTORY Sister with unclear cardiac disease. ADDITIONAL NOTES The nursing notes have been reviewed. PHYSICAL EXAM Vital Signs: 09/21/2016 20:36 BP: 170/85. HR: 122. RR: 18. O2 saturation: 100%. Temp: 98 F. Pain level now: 3/10. Appearance: Alert. Anxious. Patient in moderate distress. Eyes: Eyes normal inspection. No pale conjunctivae or scleral icterus. ENT: Pharynx normal. Uvula midline. No pharyngeal erythema. The mucous membranes are not dry. Neck: Normal inspection. No jugular venous distention. Neck supple. No meningeal signs or carotid bruit. CVS: Tachycardia. Heart sounds normal. Pulses normal. Respiratory: No respiratory distress. Mildly prolonged expirations. Expiratory mild bilateral wheezes present. No decreased air movement, stridor, rales or rhonchi. Abdomen: Soft and nontender. Back: Normal inspection. Skin: Skin warm and dry. Normal skin color. No rash. Normal skin turgor. Extremities: Extremities exhibit normal ROM. No calf tenderness. No lower extremity edema. Neuro: Oriented X 3. No motor deficit. LABS, X-RAYS, AND EKG EKG: EKG time: (21:21). Regular narrow-complex tachycardia (ventricular rate 100). Sinus tachycardia. Frequent unifocal ectopic beats. Premature ventricular contractions. Normal P waves. Normal MOY. Normal QRS complex. Normal ST and T waves. Non-specific ST segment / T wave abnormalities. The study has been interpreted contemporaneously by me. The EKG appears to be a good tracing. Artifact present. Rhythm Strip #1: Sinus tachycardia. Regular rhythm. Narrow QRS complexes. No ectopy. Chest X-ray: No acute disease. Normal lung markings present. Normal heart size. Mediastinum normal. Great vessels normal. No infiltrate. Views: PA and lateral. Technique: good. The X-rays were interpreted contemporaneously by me. The X-rays were discussed with the radiologist (via PACS note). Laboratory Tests: UA-Culture if indicated: (FAITH: 09/21/2016 20:45) ( MsgRcvd 09/21/2016 21:41) Final results Test Result Flag Units (Reference) URINE COLOR YELLOW URINE APPEARANCE CLEAR URINE GLUCOSE NEGATIVE (NEGATIVE) URINE BILIRUBIN NEGATIVE (NEGATIVE) URINE KETONE NEGATIVE (NEGATIVE) URINE SPECIFIC GRAVITY 1.020 (1.010-1.030) URINE PH 6.0 (5.0-8.0) URINE PROTEIN NEGATIVE (NEGATIVE) URINE UROBILINOGEN 0.2 EU/dL (0.2-1.0) URINE NITRITE NEGATIVE (NEGATIVE) URINE BLOOD NEGATIVE (NEGATIVE) URINE LEUK ESTERASE NEGATIVE (NEGATIVE) URINE RBC 0-1 rbc/hpf (0-1) URINE WBC 0-1 wbc/hpf (0-1) URINE EPITHELIAL CELLS 1-3 EPI/hpf (0-5) URINE BACTERIA NONE SEEN (NONE SEEN) URINE COMMENT CULT NOT INDICATED URINE CULTURES ARE SET-UP BASED ON THE FOLLOWING CRITERIA:POSITIVE NITRITEPOSITIVE LEUKOCYTE ESTERASEGREATER THAN 10 WHITE BLOOD CELLSMODERATE (2+) OR GREATER BACTERIA Urine: (FAITH: 09/21/2016 20:45) ( [facility] [place]/[facility] 21:36) Final results Test Result Flag Units (Reference) URINE NEGATIVE CBC w Diff: (FAITH: 09/21/2016 21:35) ( [facility] 09/21/2016 21:46) Final results Test Result Flag Units (Reference) WHITE BLOOD COUNT 10.3 K/uL (4.5-11.5) RED BLOOD COUNT 4.49 M/uL (4.00-5.20) HEMOGLOBIN 14.0 gm/dL (12.0-16.0) HEMATOCRIT 40.4 % (36.0-46.0) MEAN CELL VOLUME 90 fL (80-100) MEAN CORPUSCULAR HGB 31 pg (26-34) MEAN CORPUSCULAR HGB CONC 35 g/dL (31-37) RED CELL DISTRIBUTION WIDTH 12.5 % (11.6-14.8) PLATELET COUNT 236 K/uL (150-400) NEUTROPHIL % 77.3 H % (50-75) LYMPH % 15.6 L % (25-40) MONO % 4.8 % (3-14) EOSINOPHIL % 1.6 % (0-4) BASOPHIL % 0.7 % (0-2) [id number]: (FAITH: 09/21/2016 21:35) ( [facility] 09/21/2016 22:00) Final results Test Result Flag Units (Reference) D-DIMER QUANTITATIVE < 0.27 L ug/mLFEU (0.27-0.52) The primary value of this quantitative assay relates toits negative predictive value (i.e. exclusion) of pulmonaryembolism/deep vein thrombosis/DIC.Elevated levels of d-dimer may also occur with:, age, cancer, inflammation, liver disease,post-op, infection, hematoma, coronary disease, peripheralarteriopathy, bleeding disorders and thrombolytic treatment.Results should be correlated with other clinical andradiological data.Testing Methodology: Latex Immunoassay CMP: (FAITH: 09/21/2016 21:35) ( MsgRcvd 09/21/2016 22:12) Final results Test Result Flag Units (Reference) GLUCOSE 109 mg/dL (70-110) BUN 11 mg/dL (7-18) CREATININE 0.8 mg/dL (0.6-1.3) Estimated GFR >60 mL/min Estimated GFR- >60 mL/min Note: Persistent reduction over 3 months in eGFR<60 mL/min/1.73 m2 defines CKD. Patients with eGFR values>=60 mL/min/1.73 m2 may also have CKD if evidence ofpersistent proteinuria. Additional information may be foundat www.kidney.org. SODIUM 144 mmol/L (136-145) POTASSIUM 3.7 mmol/L (3.5-5.1) CHLORIDE 108 H mmol/L (98-107) CARBON DIOXIDE 24 mmol/L (21-32) CALCIUM 9.2 mg/dL (8.5-10.1) TOTAL PROTEIN 7.7 g/dL (6.4-8.2) ALBUMIN 3.9 g/dL (3.3-5.0) BILIRUBIN, TOTAL 0.2 mg/dL (0.0-1.0) ALKALINE PHOSPHATASE 71 U/L (46-116) AST (SGOT) 14 L U/L (15-37) ALT (SGPT) 40 U/L (12-78) TROPONIN I <0.05 L ng/mL (0.00-1.5) TROPONIN REFERENCE RANGE:<0.1 NEGATIVE0.1-1.5 INDETERMINANT>1.5 POSITIVE . Pulse Oximetry: 09/21/2016 20:36 O2 saturation: 100%. (FIO2 - room air). Interpretation: normal. PROGRESS AND PROCEDURES Course of Care: DuoNeb nebulizer treatment (1 unit dose) by respiratory therapist. 21:00. Care transferred from Dr Cortez to myself secondary to change of shift 22:27 09/21/16. Patient is stable. Physical exam findings are improved. Symptoms much better. 22:27 09/21/16. Pt's VS/ HR decreased. History of anxiety and used albuterol. Labs, CXR, ECG without significant worrisome findings - PVC's are chronic and known to pt and her providers. No signs of serious cardiopulmonary ds now. Extensive, recent cardiac w/u. She should be safe for close out pt follow up. 09/21/2016 22:19 BP: 127/65. HR: 82. RR: 17. O2 saturation: 100%. Patient/family counseled. Old ED records reviewed. Patient has had multiple ED visits. Disposition: Discharged. Condition: stable and improved. CLINICAL IMPRESSION Moderate persistent asthma with an acute exacerbation. No status asthmaticus, pneumonia, hypoxemia or acute respiratory failure. Chronic sinusitis Essential hypertension. INSTRUCTIONS Do not work for three days. Drink plenty of fluids. Warnings: Further evaluation is necessary in order to recheck abnormal lab, obtain test results, conduct further tests and assess the possibility of serious illness. It is very important to follow up with a physician. GENERAL WARNINGS: Return or contact your physician immediately if your condition worsens or changes unexpectedly, if not improving as expected, or if other problems arise. Your Current Medications: CONTINUE TAKING THE FOLLOWING MEDICATIONS: Aspir-81 Oral : daily. Augmentin Oral : Tablet 875-125 mg, 1 tablet 2x a day. Co Q-10 Oral. Garlic Oral. Metoprolol 25mg at bedtime*. Ofloxacin Ophthalmic : Solution 0.3 %, 2 drops x4 daily. Vitamins/Minerals Oral. Prescription Medications: Medrol Dosepak: take according to package directions. Dispense one (1) dosepak. No refills. Substitution is permissible. OTC Medications: Acetaminophen (available over the counter): take according to label instructions. Afrin nasal spray (Available over the counter): Take according to label instructions. Follow-up: Follow up with your doctor tomorrow. Follow up with an ear, nose and throat physician (an setup operator). Call for the next available appointment. Screening today revealed the patient's blood pressure to be in the hypertensive range. The patient should follow up with a primary care provider for blood pressure management. (Electronically signed by Julio Hart DO 09/22/2016 3:07)
--- NOTE | 2016-09-22 03:07 | ED MED RECONCILIATION SUMMARY ---
Patient: PANDA SNYDER Medication Reconciliation Report [facility] VisitID: [id number] [address] [place] [address] 46y, F Registration Date/Time: 09/21/2016 Weight: 146.9 kg Height/Length: 72 in. BMI: 44.0 ALLERGIES: Dilaudid, Headache medications, Morphine and Related, Pain medications, Valium The patient's Home Medications are listed below: CONTINUE TAKING THE FOLLOWING MEDICATIONS: Aspir-81 Oral daily Augmentin Oral (875-125 mg) 1 tablet, 2x a day Co Q-10 Oral Garlic Oral Metoprolol 25mg at bedtime Ofloxacin Ophthalmic (0.3 %) 2 drops, x4 daily Vitamins/Minerals Oral The source(s) of the original Home Medication information: patient The following Medications were given to the patient in the Emergency Department: Duoneb [Neb Tx] Neb TX 1 unit dose, administered: 09/21/2016 9:36:00 PM SOLU-MEDROL [IVP] IVP 125 mg, administered: 09/21/2016 10:42:00 PM The following Medications were prescribed to the patient: Acetaminophen (available over the counter): take according to label instructions. -- Julio Hart DO Afrin nasal spray (Available over the counter): Take according to label instructions. -- Julio Hart DO Medrol Dosepak: take according to package directions. Dispense one (1) dosepak. No refills. Substitution is permissible. -- Julio Hart DO
--- NOTE | 2016-09-22 03:07 | ED MAR SUMMARY ---
..... Medication Administration Record [facility] [address] [place] [address] Patient: PANDA SNYDER Visit ID: [id number] 46y, F Weight: 146.9 kg Height/Length: 72 in BMI: 44 ALLERGIES: Dilaudid, Morphine and Related, Headache medications, Pain medications, Valium Given 21:36 09/21/2016 Miles De Santiago, RLarryN. Medication Administered: DUONEB [NEB TX] (IPRATROPIUM-ALBUTEROL), Dose: 1 unit dose Neb TX. Medication Ordered: DuoNeb Neb Tx 1 unit dose (NOW). Given 22:42 09/21/2016 Miles De Santiago, R.N. Medication Administered: SOLU-MEDROL [IVP] (METHYLPREDNISOLONE SODIUM SUCC), Dose: 125 mg IVP over 2 minute(s), Site: #1 left wrist. Medication Ordered: Solu-MEDROL IV 125 mg (NOW).
--- NOTE | 2016-09-22 03:07 | ED MED RECONCILIATION SUMMARY ---
Patient: PANDA SNYDER Medication Reconciliation Report [facility] VisitID: [id number] [address] [place] [address] 46y, F Registration Date/Time: 09/21/2016 Weight: 146.9 kg Height/Length: 72 in. BMI: 44.0 ALLERGIES: Dilaudid, Headache medications, Morphine and Related, Pain medications, Valium The patient's Home Medications are listed below: CONTINUE TAKING THE FOLLOWING MEDICATIONS: Aspir-81 Oral daily Augmentin Oral (875-125 mg) 1 tablet, 2x a day Co Q-10 Oral Garlic Oral Metoprolol 25mg at bedtime Ofloxacin Ophthalmic (0.3 %) 2 drops, x4 daily Vitamins/Minerals Oral The source(s) of the original Home Medication information: patient The following Medications were given to the patient in the Emergency Department: Duoneb [Neb Tx] Neb TX 1 unit dose, administered: 09/21/2016 9:36:00 PM SOLU-MEDROL [IVP] IVP 125 mg, administered: 09/21/2016 10:42:00 PM The following Medications were prescribed to the patient: Acetaminophen (available over the counter): take according to label instructions. -- Julio Hart DO Afrin nasal spray (Available over the counter): Take according to label instructions. -- Julio Hart DO Medrol Dosepak: take according to package directions. Dispense one (1) dosepak. No refills. Substitution is permissible. -- Julio Hart DO
--- NOTE | 2016-09-22 03:07 | ED MAR SUMMARY ---
..... Medication Administration Record [facility] [address] [place] [address] Patient: PANDA SNYDER Visit ID: [id number] 46y, F Weight: 146.9 kg Height/Length: 72 in BMI: 44 ALLERGIES: Dilaudid, Morphine and Related, Headache medications, Pain medications, Valium Given 21:36 09/21/2016 Miles De Santiago, RLarryN. Medication Administered: DUONEB [NEB TX] (IPRATROPIUM-ALBUTEROL), Dose: 1 unit dose Neb TX. Medication Ordered: DuoNeb Neb Tx 1 unit dose (NOW). Given 22:42 09/21/2016 Miles De Santiago, R.N. Medication Administered: SOLU-MEDROL [IVP] (METHYLPREDNISOLONE SODIUM SUCC), Dose: 125 mg IVP over 2 minute(s), Site: #1 left wrist. Medication Ordered: Solu-MEDROL IV 125 mg (NOW).
--- NOTE | 2016-09-22 03:07 | ED DISCHARGE INSTRUCTIONS ---
Patient: PANDA SNYDER General Instructions [facility] VisitID: [id number] [place] [address] 46y, F Registration Date/Time: 09/21/2016 Moderate persistent asthma with an acute exacerbation. No status asthmaticus, pneumonia, hypoxemia or acute respiratory failure. Chronic sinusitis Essential hypertension. INSTRUCTIONS Do not work for three days. Drink plenty of fluids. Warnings: Further evaluation is necessary in order to recheck abnormal lab, obtain test results, conduct further tests and assess the possibility of serious illness. It is very important to follow up with a physician. GENERAL WARNINGS: Return or contact your physician immediately if your condition worsens or changes unexpectedly, if not improving as expected, or if other problems arise. Your Current Medications: CONTINUE TAKING THE FOLLOWING MEDICATIONS: Aspir-81 Oral : daily. Augmentin Oral : Tablet 875-125 mg, 1 tablet 2x a day. Co Q-10 Oral. Garlic Oral. Metoprolol 25mg at bedtime*. Ofloxacin Ophthalmic : Solution 0.3 %, 2 drops x4 daily. Vitamins/Minerals Oral. Prescription Medications: Medrol Dosepak: take according to package directions. Dispense one (1) dosepak. No refills. Substitution is permissible. OTC Medications: Acetaminophen (available over the counter): take according to label instructions. Afrin nasal spray (Available over the counter): Take according to label instructions. Follow-up: Follow up with your doctor tomorrow. Follow up with an ear, nose and throat physician (an pipe welder). Call for the next available appointment. Screening today revealed the patient's blood pressure to be in the hypertensive range. The patient should follow up with a primary care provider for blood pressure management. ADDITIONAL INFORMATION Asthma [Adult] Asthma is a disease where the small air passages within the lung go into spasm and restrict the flow of air. Inflammation and swelling of the airways cause further restriction. During an acute asthma attack, these factors cause difficulty breathing, wheezing, cough and chest tightness. An asthma attack can be triggered by many things. Common triggers include the common cold, bronchitis, pneumonia, irritants such as smoke or pullutants in the air, emotional upset and heavy exercise. Inmany adults with asthma, allergies todust, mold, pollen and animal dander can cause an asthma attack. Skipping doses of daily asthma medicine can also bring on an asthma attack. Asthma can be controlled with proper medicines and decreased exposure to known allergens. Home Care: Take prescribed medicine exactly at the times advised. If you have a hand-held inhaler or aerosol breathing medicine, do not use it more than once every four hours, unless told to do so. (If you need this medicine more than every four hours, you may need to return to the Emergency Room.) If prescribed an antibiotic or prednisone, take all of the medicine even if you are feeling better after a few days. Do not smoke. Avoid being exposed to the smoke of others. Some persons with asthma have worsening of their symptoms when they take aspirin and non-steroidal medicines like ibuprofen (Motrin, Advil) and naproxen (Aleve, Naprosyn). Talk to your doctor if you think this may apply to you. Acetaminophen (Tylenol)should be safe to use. Follow Up with your doctor, or as advised by our staff. Always bring all of your current medicines with you for your doctor to see. If you do not already have one, talk to your doctor about developing a personalized "Asthma Action Plan." [NOTE: A pneumococcal vaccine and yearly flu shot (every fall) are recommended. Ask your doctor about this.] Get Prompt Medical Attention if any of the following occur: Increased wheezing or shortness of breath Need to use your inhalers more often than usual without relief Fever of 100.4F (38C) or higher, or as directed by your healthcare provider Coughing up lots of dark-colored or bloody sputum (mucus) Chest pain with each breath You do not start to improve within 24 hours Call 911 If Any Of The Following Occur : Trouble walking or talking because of shortness of breath If you use a peak flow meter andyou are still in the red zone (less than 50 percent) 15 minutes after using inhaler medication Lips or fingernails turning rdoriguez or blue Sinusitis [Abx Tx] The sinuses are air-filled spaces within the bones of the face. They connect to the inside of the nose. Sinusitis is an inflammation of the tissue lining the sinus cavity. Sinus inflammation can occur during a cold or hay-fever (allergies to pollens and other particles in the air) and cause symptoms of sinus congestion and fullness. A sinus infection causes fever, headache and facial pain. There is usually green or yellow drainage from the nose or into the back of the throat (post-nasal drip). Antibiotics are prescribed to treat this condition. Home Care: Drink plenty of water, hot tea, and other liquids to stay well hydrated. This thins the mucus and promotes sinus drainage. Apply heat to the painful areas of the face. Use a towel soaked in hot water. Or, shoe shiner the shower and direct the hot spray onto your face. This is a good way to inhale warm water vapor and get heat on your face at the same time. (Cover your mouth and nose with your hands so you can still breathe as you do this.) Use a vaporizer with products such as Surveypal VapoRub (contains menthol) at night. Suck on peppermint, menthol or eucalyptus hard candies during the day. An expectorant containing guaifenesin (such as Robitussin), helps to thin the mucus and promote drainage from the sinuses. Qxqw-beh-ycnigsh decongestants may be used unless a similar medicine was prescribed. Nasal sprays work the fastest. Use one that contains phenylephrine (Massimo-synephrine, Sinex and others) or oxymetazoline (Afrin). First blow the nose gently to remove mucus, then apply the drops. Do not use these medicines more often than directed on the label or for more than three days or symptoms may worsen. You may also use tablets containing pseudoephedrine (Sudafed). Many sinus remedies combine ingredients, which may increase side effects. Read the labels or ask the pharmacist for help. NOTE: Persons with high blood pressure should not use decongestants. They can raise blood pressure. Antihistamines are useful if allergies are a cause of your sinusitis. The mildest one is chlorpheniramine (available without a prescription). The dose for adults is 8-12mg three times a day. [NOTE: Do not use chlorpheniramine if you have glaucoma or if you are a man with trouble urinating due to an enlarged prostate.] Claritin (loratidine) is an antihistamine that causes less drowsiness and is a good alternative for daytime use. Do not use nasal rinses or irrigation during an acute sinus infection, unless advised by your doctor. Rinsing may spread the infection to other sinuses. You may use acetaminophen (Tylenol) or ibuprofen (Motrin, Advil) to control pain, unless another pain medicine was prescribed. [ NOTE: If you have chronic liver or kidney disease or ever had a stomach ulcer, talk with your doctor before using these medicines.] (Aspirin should never be used in anyone under 18 years of age who is ill with a fever. It may cause severe liver damage.) Finish the full course, even if you are feeling better after a few days. Follow Up with your doctor or this facility in one week or as instructed by our staff if not improving. Get Prompt Medical Attention if any of the following occur: Facial pain or headache becomes more severe Stiff neck Unusual drowsiness or confusion, or not acting like your normal self Swelling of the forehead or eyelids Vision problems including blurred or double vision Fever of 100.4F (38C) or higher, or as directed by your healthcare provider Seizure High Blood Pressure --Established High Blood Pressure (Hypertension) is a chronic disease. The cause is unknown in most cases. It can usually be controlled with lifestyle changes and/or medicines. Symptoms of high blood pressure may include headache, dizziness, visual changes, chest pain and shortness of breath. Sometimes it causes no symptoms at all. However, even if there are no symptoms, untreated high blood pressure increases the risk of heart attack, also known as acute myocardial infarction, or AMI, and stroke. It is a serious health risk and should not be ignored. A normal blood pressure is 120/80 or less. The first (top) number is the "systolic" pressure. The second (bottom) number is the "diastolic" pressure. Hypertension exists when either the top number is 140 or higher, OR the bottom number is 90 or higher on repeated measurements. Home Care: All patients with high blood pressure should do the following to lower their pressure. If you are on medicines, then these methods may reduce or eliminate your need for medicines in the future. Begin a weight loss program if you are overweight. Reduce your salt intake. Avoid high salt foods (olives, pickles, smoked meats, salted potato chips, etc.). Do not add salt to your food at the table. Use only small amounts of salt when cooking. Begin an exercise program. Discuss with your doctor what type of exercise program would be best for you. It doesn't have to be difficult. Even brisk walking for 20 minutes three times a week is a good form of exercise. Avoid medicines which contain heart stimulants. This includes many cold and sinus decongestant pills and sprays as well as diet pills. Check the warnings about hypertension on the label. Stimulants such as amphetamine or cocaine could be lethal for someone with hypertension. Never take these. Limit your caffeine intake or switch to caffeine-free products. Stop smoking. If you are a long-time smoker, this can be hard. Enroll in a stop-smoking program to improve your chance of success. Learning how to handle stress better is an important part of any program to lower blood pressure. Learn about relaxation methods such as meditation, yoga or biofeedback. If medicines were prescribed, take them exactly as directed. Missing doses may cause your blood pressure get out of control. Consider buying an automatic blood pressure machine (available at most pharmacies). Use this to monitor your blood pressure at home and report the results to your doctor. Follow Up: Regular visits to your own physician for blood pressure checks and medicine adjustment is an important part of your care. Make a follow-up appointment as directed by our staff. Get Prompt Medical Attention if any of the following occur: Chest pain or shortness of breath Severe headache Throbbing or rushing sound in the ears Nosebleed Sudden severe abdominal pain Extreme drowsiness, confusion or fainting Dizziness or vertigo (dizziness with spinning sensation) Weakness of an arm or leg or one side of the face Difficulty with speech or vision Methylprednisolone Oral tablet What is this medicine? METHYLPREDNISOLONE (meth ill pred NISS oh lone) is a corticosteroid. It is commonly used to treat inflammation of the skin, joints, lungs, and other organs. Common conditions treated include asthma, allergies, and arthritis. It is also used for other conditions, such as blood disorders and diseases of the adrenal glands. How should I use this medicine? Take this medicine by mouth with a drink of water. Follow the directions on the prescription label. Take it with food or milk to avoid stomach upset. If you are taking this medicine once a day, take it in the morning. Do not take more medicine than you are told to take. Do not suddenly stop taking your medicine because you may develop a severe reaction. Your doctor will tell you how much medicine to take. If your doctor wants you to stop the medicine, the dose may be slowly lowered over time to avoid any side effects. Talk to your brush maker regarding the use of this medicine in children. Special care may be needed. What side effects may I notice from receiving this medicine? Side effects that you should report to your doctor or health account executive healthcare as soon as possible: allergic reactions like skin rash, itching or hives, swelling of the face, lips, or tongue eye pain, decreased or blurred vision, or bulging eyes fever, sore throat, sneezing, cough, or other signs of infection, wounds that will not heal increased thirst mental depression, mood swings, mistaken feelings of self importance or of being mistreated pain in hips, back, ribs, arms, shoulders, or legs swelling of the ankles, feet, hands trouble passing urine or change in the amount of urine Side effects that usually do not require medical attention (report to your doctor or health account executive healthcare if they continue or are bothersome): confusion, excitement, restlessness headache nausea, vomiting skin problems, acne, thin and shiny skin weight gain What may interact with this medicine? Do not take this medicine with any of the following medications: mifepristone This medicine may also interact with the following medications: tacrolimus vaccines warfarin What if I miss a dose? If you miss a dose, take it as soon as you can. If it is almost time for your next dose, talk to your doctor or health account executive healthcare. You may need to miss a dose or take an extra dose. Do not take double or extra doses without advice. Where should I keep my medicine? Keep out of the reach of children. Store at room temperature between 20 and 25 degrees C (68 and 77 degrees F). Throw away any unused medicine after the expiration date. What should I tell my health care provider before I take this medicine? They need to know if you have any of these conditions: Holland's syndrome diabetes glaucoma heart problems or disease high blood pressure infection such as herpes, measles, tuberculosis, or chickenpox kidney disease liver disease mental problems myasthenia gravis osteoporosis seizures stomach ulcer or intestine disease including colitis and diverticulitis thyroid problem an unusual or allergic reaction to lactose, methylprednisolone, other medicines, foods, dyes, or preservatives or trying to get breast-feeding What should I watch for while using this medicine? Visit your doctor or health account executive healthcare for regular checks on your progress. If you are taking this medicine for a long time, carry an identification card with your name and address, the type and dose of your medicine, and your doctor's name and address. The medicine may increase your risk of getting an infection. Stay away from people who are sick. Tell your doctor or health account executive healthcare if you are around anyone with measles or chickenpox. If you are going to have surgery, tell your doctor or health account executive healthcare that you have taken this medicine within the last twelve months. Ask your doctor or health account executive healthcare about your diet. You may need to lower the amount of salt you eat. The medicine can increase your blood sugar. If you are a diabetic check with your doctor if you need help adjusting the dose of your diabetic medicine. Acetaminophen Oral tablet What is this medicine? ACETAMINOPHEN (a set a YANIQUE kika fen) is a pain reliever. It is used to treat mild pain and fever. How should I use this medicine? Take this medicine by mouth with a glass of water. Follow the directions on the package or prescription label. Take your medicine at regular intervals. Do not take your medicine more often than directed. Talk to your brush maker regarding the use of this medicine in children. While this drug may be prescribed for children as young as 6 years of age for selected conditions, precautions do apply. What side effects may I notice from receiving this medicine? Side effects that you should report to your doctor or health account executive healthcare as soon as possible: allergic reactions like skin rash, itching or hives, swelling of the face, lips, or tongue breathing problems fever or sore throat redness, blistering, peeling or loosening of the skin, including inside the mouth trouble passing urine or change in the amount of urine unusual bleeding or bruising unusually weak or tired yellowing of the eyes or skin Side effects that usually do not require medical attention (report to your doctor or health account executive healthcare if they continue or are bothersome): headache nausea, stomach upset What may interact with this medicine? alcohol imatinib isoniazid other medicines with acetaminophen What if I miss a dose? If you miss a dose, take it as soon as you can. If it is almost time for your next dose, take only that dose. Do not take double or extra doses. Where should I keep my medicine? Keep out of reach of children. Store at room temperature between 20 and 25 degrees C (68 and 77 degrees F). Protect from moisture and heat. Throw away any unused medicine after the expiration date. What should I tell my health care provider before I take this medicine? They need to know if you have any of these conditions: if you frequently drink alcohol containing drinks liver disease an unusual or allergic reaction to acetaminophen, other medicines, foods, dyes or preservatives or trying to get breast-feeding What should I watch for while using this medicine? Tell your doctor or health account executive healthcare if the pain lasts more than 10 days (5 days for children), if it gets worse, or if there is a new or different kind of pain. Also, check with your doctor if a fever lasts for more than 3 days. Do not take other medicines that contain acetaminophen with this medicine. Always read labels carefully. If you have questions, ask your doctor or pharmacist. If you take too much acetaminophen get medical help right away. Too much acetaminophen can be very dangerous and cause liver damage. Even if you do not have symptoms, it is important to get help right away. You have been given the following additional information: Asthma, Acute (Adult) Sinusitis, Abx Tx Hypertension, Established Methylprednisolone Oral tablet Acetaminophen Oral tablet Do not work for three days. (Electronically signed by Julio Hart DO 09/22/2016 3:07)
== END 2016-09-21 22:58 | disposition home or self-care (01) ==
LOC: ED SRH 20:32
DX: J45.41 Moderate persistent asthma with (acute) exacerbation (principal); J32.9 Chronic sinusitis, unspecified; I10 Essential (primary) hypertension; Z79.899 Other long term (current) drug therapy; Z88.5 Allergy status to narcotic agent
CPT/HCPCS: 90004; 90100; 90616; 91556; 93070; 95059

== ENCOUNTER 2016-10-07 02:08 | Emergency (ER) | payer BC ==
--- NOTE | 2016-10-07 03:53 | ED ORDER SUMMARY ---
..... Patient: PANDA SNYDER OrderSheet [facility] VisitID: [id number] [place] [address] 46y, F Registration Date/Time: 10/07/2016 ORDER SHEET Weight: 145.1 kg Allergies: Dilaudid, Headache medications, Morphine and Related, Pain medications, Valium GENERAL ORDERS: CBC w Diff Urgent (02:30 10/07/2016 Napoleon ENGLAND) (Ack 2:34 LMuller) (2:44 Ambrose R.N.) CMP Urgent (02:30 10/07/2016 Napoleon ENGLAND) (Ack 2:34 LMuller) (2:44 Ambrose R.N.) Amylase Urgent (02:10/07/2016 Napoleon ENGLAND) (Ack 2:34 LMuller) (2:44 Ambrose R.N.) Lipase Urgent (02:10/07/2016 Napoleon ENGLAND) (Ack 2:34 LMuller) (2:44 Ambrose R.N.) UA-Culture if indicated Urgent (02:30 10/07/2016 Napoleon ENGLAND) (Ack 2:33 Ambrose R.N.) (Ack 2:34 LMuller) (2:36 Ambrose R.N.) Urine Urgent (02:30 10/07/2016 Napoleon ENGLAND) (Ack 2:34 LMuller) (Cancelled: hysterectomy2:35 Ambrose R.N.) MEDICATION ORDERS: Levaquin PO 750 mg (NOW) (03:11 10/07/2016 Layla R.NLarry verbal order read back to Napoleon ENGLAND) (Ack 3:18 Ambrose R.N.) (3:25 Ambrose R.N.) IV FLUIDS: IV NS : initial bolus 500 mL (1000 mL/hr), then 125 mL/hr for 4h (NOW); Urgent (02:29 10/07/2016 Napoleon ENGLAND) (Ack 2:30 Emile R.N.) (2:44 Ambrose R.N.) ORDER SHEET NOTES: [Electronically signed by Mounika Oliver R.N. (10/07/2016)] [Electronically signed by Mario Kim MD (:12 10/15/2016)] [Electronically locked/signed by Mounika Oliver R.N. (10/07/2016)]
--- NOTE | 2016-10-07 03:53 | ED ORDER SUMMARY ---
..... Patient: PANDA SNYDER OrderSheet [facility] VisitID: [id number] [place] [address] 46y, F Registration Date/Time: 10/07/2016 ORDER SHEET Weight: 145.1 kg Allergies: Dilaudid, Headache medications, Morphine and Related, Pain medications, Valium GENERAL ORDERS: CBC w Diff Urgent (02:30 10/07/2016 Napoleon ENGLAND) (Ack 2:34 LMuller) (2:44 Ambrose R.N.) CMP Urgent (02:30 10/07/2016 Napoleon ENGLAND) (Ack 2:34 LMuller) (2:44 Ambrose R.N.) Amylase Urgent (02:10/07/2016 Napoleon ENGLAND) (Ack 2:34 LMuller) (2:44 Ambrose R.N.) Lipase Urgent (02:10/07/2016 Napoleon ENGLAND) (Ack 2:34 LMuller) (2:44 Ambrose R.N.) UA-Culture if indicated Urgent (02:30 10/07/2016 Napoleon ENGLAND) (Ack 2:33 Ambrose R.N.) (Ack 2:34 LMuller) (2:36 Ambrose R.N.) Urine Urgent (02:30 10/07/2016 Napoleon ENGLAND) (Ack 2:34 LMuller) (Cancelled: hysterectomy2:35 Ambrose R.N.) MEDICATION ORDERS: Levaquin PO 750 mg (NOW) (03:11 10/07/2016 Layla R.NLarry verbal order read back to Napoleon ENGLAND) (Ack 3:18 Ambrose R.N.) (3:25 Ambrose R.N.) IV FLUIDS: IV NS : initial bolus 500 mL (1000 mL/hr), then 125 mL/hr for 4h (NOW); Urgent (02:29 10/07/2016 Napoleon ENGLAND) (Ack 2:30 Emile R.N.) (2:44 Ambrose R.N.) ORDER SHEET NOTES: [Electronically signed by Mounika Oliver R.N. (10/07/2016)] [Electronically signed by Mario Kim MD (:12 10/15/2016)] [Electronically locked/signed by Mounika Oliver R.N. (10/07/2016)]
--- NOTE | 2016-10-07 03:53 | ED NURSING NOTES ---
Clinical Report - Nurses [facility] [address] [place] [address] 10/07/2016 2:08 [id number] Triage time 02:20. Chief Complaint: PAINFUL URINATION and URGENCY. --02:30 Mounika Oliver R.N. 02:20 10/07/16. BP: 136/71. HR: 111. RR: 20. O2 saturation: 97%. Temp: 98.6 F. Pain level now: 11/29. --02:30 Mounika Oliver R.N. Weight: 145.1 kg. Height/Length: 72 inches. BMI: 43.4. --02:28 Mounika Oliver R.N. Medications Aspir-81 Oral daily. Co Q-10 Oral. Garlic Oral. Metoprolol 25mg at bedtime. Vitamins/Minerals Oral. --02:23 Mounika Oliver R.N. PredniSONE Oral. --02:24 Mounika Oliver R.N. Albuterol-Ipratropium Inhalation. --02:24 Mounika Oliver R.N. Allergies Dilaudid. Headache medications. Morphine and Related. Pain medications. Valium. --02:23 Mounika Oliver R.N. History Arrived by private vehicle. Historian: patient. Primary physician (niraj). This started last night. Onset was abrupt. Started while sleeping. Symptoms are constant and still present (2199). She has had severe, constant, sharp right-sided and left-sided flank pain with nausea. PAST MEDICAL HX: Hypertension. The patient has had a hysterectomy. SOCIAL HX: Never smoker. Alcohol use. Last drink was 8 months ago. (8 months). No drug use. --02:30 Mounika Oliver R.N. PHYSICAL ASSESSMENT Ambulatory to room. Patient gowned. GENERAL / NEURO / PSYCH: Alert. Oriented X 4. Appears in pain. RESPIRATORY: Respirations not labored. GI / : Burning during urination that is associated with urgency and frequency. She has had frequency of urination. Urgency of urination. --02:31 Mounika Oliver R.N. NURSING PROGRESS NOTES 02:41 10/07/2016 Site #1 started via IV in the right hand with an 20g angiocath, with aseptic technique and good blood return; one attempt. Blood drawn: rainbow set. Saline lock flushed with 10 mL saline. --02:44 Mounika Oliver R.N. Two patient identifiers checked. Call light placed in reach. Side rails up x 1. --02:50 Mounika Oliver R.N. Patient ready for evaluation- chart flagged. --02:50 Mounika Oliver R.N. 03:14 10/07/2016 IV Fluids IV NS via IV site #1 Rate Changed: bag #1 decreased to 125 mL/hr via IV pump. IV patency established. IV site checked: no pain, redness, or swelling. IV flushed thoroughly. Confirmed 5 Rights. --03:17 Mounika Oliver R.N. <<STRICKEN ENTRY-- 03:15 10/07/2016 IV Fluids IV NS Discontinued: bag #1 completed. IV patency established. IV site checked: no pain, redness, or swelling. IV flushed thoroughly. (500ml bolus complete). --03:15 Mounika Oliver R.N. --END STRIKE>> Correction. --04:20 Mounika Oliver R.N. 03:23 10/07/2016 Levaquin (Levofloxacin) PO Tablets 750 mg given. Allergies verified and confirmed 5 rights. (3 - 250 mg tablets given to = 750 mg). --03:25 Mounika Oliver R.N. ED physician at the patient's bedside. --03:28 Mounika Oliver R.N. The patient reports frequency of urination is still present and currently severe. She reports burning on urination is still present and currently severe. GENERAL / NEURO / PSYCH: Alert. Appears in pain. Oriented X 4. --03:33 Mounika Oliver R.N. 04:20 10/07/2016 IV Fluids IV NS Discontinued: bag #1 STOPPED upon discharge. Total amount infused: 750 mL. IV patency established. IV site checked: no pain, redness, or swelling. IV flushed thoroughly. --04:20 Mounika Oliver R.N. DISPOSITION / DISCHARGE 02:43 10/07/2016 Started bag #1 1000 mL IV Fluids IV NS (Saline); bolus of 500 mL then at 1000 mL/hr via site #1 via IV pump. Allergies verified and confirmed 5 rights. IV patency established. IV site checked: no pain, redness, or swelling. IV flushed thoroughly pre- and post-medication administration. --02:44 Mounika Oliver R.N. 04:11 10/07/2016 Site #1 removed upon discharge. Catheter intact. Manual pressure and bandage applied. --04:23 Mounika Oliver R.N. Departure time: 410. Condition at departure: unchanged. No learning barriers present. Discharge instructions provided and reviewed with the patient. Reviewed medication(s) side effects, precautions, dosing and course information. Prescription(s) given to the patient. Work note given. Patient verbalized understanding. Written instructions provided in Wolof. The patient was discharged home. She left the Emergency Department ambulatory and via private vehicle. Patient driving. --04:24 Mounika Oliver R.N. <<STRICKEN ENTRY-- 04:21 10/07/16. BP: 140/92. HR: 101. RR: 18. O2 saturation: 99%. Temp: deferred. Pain level now: 11/29. --04:24 Mounika Oliver R.N. --END STRIKE>> Correction. --04:25 Mounika Oliver R.N. 04:11 10/07/16. BP: 140/92. HR: 101. RR: 18. O2 saturation: 99%. Temp: deferred. Pain level now: 11/29. --04:25 Mounika Oliver R.N. Locked/Released at 10/07/2016 4:26 by Mounika Oliver R.N.
--- NOTE | 2016-10-07 03:53 | ED CLINICAL REPORT ---
Clinical Report - Physicians/Mid Levels [facility] [address] [place] [address] 10/07/2016 2:08 Patient: PANDA SNYDER Time Seen: 02:22. Arrived- By private vehicle. Historian- patient. HISTORY OF PRESENT ILLNESS Chief Complaint: DYSURIA. This started several days ago and still present. It was gradual in onset and has been constant and waxing/waning. The symptoms are described as moderate. The patient has had moderate, constant right-sided and left-sided flank pain with dysuria. She has had pain with urination and urgency of urination. The patient has had urinary frequency. REVIEW OF SYSTEMS The patient has had chills and experienced sweats. No fever, calf pain, chest pain, cough or difficulty breathing. No pedal edema, palpitations, black stools, bloody stools or constipation. No diarrhea, nausea or vomiting. she says that she has a sinus surgery scheduled for later this week. All systems otherwise negative, except as recorded above. SOCIAL HISTORY Never smoker. No alcohol use or drug use. FAMILY HISTORY No significant family medical history. ADDITIONAL NOTES The nursing notes have been reviewed. PHYSICAL EXAM Vital Signs: 10/07/2016 02:20 BP: 136/71. HR: 111. RR: 20. O2 saturation: 97%. Temp: 98.6 F. Pain level now: 6/10. Have been reviewed. Appearance: Alert. No acute distress. ENT: Pharynx normal. Neck: Neck supple. CVS: Heart sounds normal. Respiratory: No respiratory distress. Breath sounds normal. Abdomen: Soft and nontender. Bowel sounds normal. No organomegaly. No mass. Back: Mild CVA tenderness on the right and left. Normal external inspection. Skin: Skin warm and dry. Normal skin color. Normal skin turgor. Extremities: Extremities nontender. No lower extremity edema. LABS, X-RAYS, AND EKG Laboratory Tests: UA-Culture if indicated: (FAITH: 10/07/2016 02:30) ( MsgRcvd 10/07/2016 02:58) Final results Test Result Flag Units (Reference) URINE COLOR YELLOW URINE APPEARANCE CLEAR URINE GLUCOSE NEGATIVE (NEGATIVE) URINE BILIRUBIN NEGATIVE (NEGATIVE) URINE KETONE NEGATIVE (NEGATIVE) URINE SPECIFIC GRAVITY 1.015 (1.010-1.030) URINE PH 7.0 (5.0-8.0) URINE PROTEIN 1+ (NEGATIVE) URINE UROBILINOGEN 0.2 EU/dL (0.2-1.0) URINE NITRITE NEGATIVE (NEGATIVE) URINE BLOOD 3+ (NEGATIVE) URINE LEUK ESTERASE POSITIVE (NEGATIVE) URINE RBC >100 rbc/hpf (0-1) URINE WBC >100 wbc/hpf (0-1) URINE EPITHELIAL CELLS 0-1 EPI/hpf (0-5) URINE BACTERIA MANY (4+) (NONE SEEN) URINE COMMENT CULTURE INDICATED URINE CULTURES ARE SET-UP BASED ON THE FOLLOWING CRITERIA:POSITIVE NITRITEPOSITIVE LEUKOCYTE ESTERASEGREATER THAN 10 WHITE BLOOD CELLSMODERATE (2+) OR GREATER BACTERIA CBC w Diff: (FAITH: 10/07/2016 02:30) ( [facility] 10/07/2016 02:49) Final results Test Result Flag Units (Reference) WHITE BLOOD COUNT 15.4 H K/uL (4.5-11.5) RED BLOOD COUNT 4.39 M/uL (4.00-5.20) HEMOGLOBIN 13.4 gm/dL (12.0-16.0) HEMATOCRIT 39.7 % (36.0-46.0) MEAN CELL VOLUME 90 fL (80-100) MEAN CORPUSCULAR HGB 31 pg (26-34) MEAN CORPUSCULAR HGB CONC 34 g/dL (31-37) RED CELL DISTRIBUTION WIDTH 12.9 % (11.6-14.8) PLATELET COUNT 256 K/uL (150-400) NEUTROPHIL % 84.7 H % (50-75) LYMPH % 9.0 L % (25-40) MONO % 4.9 % (3-14) EOSINOPHIL % 0.8 % (0-4) BASOPHIL % 0.6 % (0-2) CMP: (FAITH: 10/07/2016 02:30) ( [facility] 10/07/2016 02:59) Final results Test Result Flag Units (Reference) GLUCOSE 139 H mg/dL (70-110) BUN 17 mg/dL (7-18) CREATININE 1.3 mg/dL (0.6-1.3) Estimated GFR 47.29 mL/min Estimated GFR- 57.32 mL/min Note: Persistent reduction over 3 months in eGFR<60 mL/min/1.73 m2 defines CKD. Patients with eGFR values>=60 mL/min/1.73 m2 may also have CKD if evidence ofpersistent proteinuria. Additional information may be foundat www.kidney.org. SODIUM 144 mmol/L (136-145) POTASSIUM 4.1 mmol/L (3.5-5.1) CHLORIDE 110 H mmol/L (98-107) CARBON DIOXIDE 24 mmol/L (21-32) CALCIUM 8.9 mg/dL (8.5-10.1) TOTAL PROTEIN 7.3 g/dL (6.4-8.2) ALBUMIN 3.6 g/dL (3.3-5.0) BILIRUBIN, TOTAL 0.4 mg/dL (0.0-1.0) ALKALINE PHOSPHATASE 69 U/L (46-116) AST (SGOT) 12 L U/L (15-37) ALT (SGPT) 30 U/L (12-78) LIPASE 137 U/L (73-393) AMYLASE 38 U/L (25-115) . PROGRESS AND PROCEDURES Course of Care: Patient is stable. Patient/family counseled. Old medical records reviewed. Disposition: Discharged. Condition: stable. CLINICAL IMPRESSION Acute pyelonephritis INSTRUCTIONS No driving or operating machinery while taking medication. Drink plenty of fluids. (call your ENT surgeon this morning and inform them that you are being treated for pyelonephritis. Ask them if this will affect your scheduled sinus surgery as discussed.). Warnings: Further evaluation is necessary. GENERAL WARNINGS: Return or contact your physician immediately if your condition worsens or changes unexpectedly, if not improving as expected, or if other problems arise. Prescription Medications: Hydrocodone/APAP 5mg/325mg: take 1 to 2 orally every 6 hours as needed for pain. Dispense fifteen (15). No refills. Cipro 500 mg: take 1 tab orally every 12 hours for 10 days. No refills. Substitution is permissible. (18 pills to finish the coursse started in the ER. Take the 1st tablet of this prescription on the morning of Thursday, October 08) Follow-up: Follow up with your doctor tomorrow. Call for the next available appointment. Understanding of the discharge instructions verbalized by patient. (Electronically signed by Mario Kim MD 10/15/2016 1:12)
--- NOTE | 2016-10-15 01:12 | ED MAR SUMMARY ---
..... Medication Administration Record [facility] [address] [place] [address] Patient: PANDA SNYDER Visit ID: [id number] 46y, F Weight: 145.1 kg Height/Length: 72 in BMI: 43.4 ALLERGIES: Dilaudid, Headache medications, Morphine and Related, Pain medications, Valium Start 02:43 10/07/2016 Mounika Oliver R.N., Stop 04:20 10/07/2016 Mounika Oliver R.N. Medication Administered: IV NS (SALINE), Dose: IV Fluids, Rate: 1000 mL/hr, Bolus: 500 mL, Dispensed: 1000 mL bag, Site: #1 right hand. Medication Ordered: IV NS : initial bolus 500 mL (1000 mL/hr), then 125 mL/hr for 4h (NOW); Urgent. Given 03:23 10/07/2016 Mounika Oliver R.N. Medication Administered: LEVAQUIN [PO] (LEVOFLOXACIN), Dose: 750 mg Tablets PO. Medication Ordered: Levaquin PO 750 mg (NOW).
--- NOTE | 2016-10-15 01:12 | ED MED RECONCILIATION SUMMARY ---
Patient: PANDA SNYDER Medication Reconciliation Report [facility] VisitID: [id number] [place] [address] 46y, F Registration Date/Time: 10/07/2016 Weight: 145.1 kg Height/Length: 72 in. BMI: 43.4 ALLERGIES: Dilaudid, Headache medications, Morphine and Related, Pain medications, Valium The patient's Home Medications are listed below: THE FOLLOWING MEDICATIONS NEED TO BE RECONCILED: Albuterol-Ipratropium Inhalation Aspir-81 Oral daily Co Q-10 Oral Garlic Oral Metoprolol 25mg at bedtime PredniSONE Oral Vitamins/Minerals Oral The source(s) of the original Home Medication information: Not obtained. The following Medications were given to the patient in the Emergency Department: IV NS IV Fluids bolus 500 mL, then 1000 mL/hr, administered: 10/07/2016 2:43:00 AM Levaquin [PO] PO 750 mg, administered: 10/07/2016 3:23:00 AM The following Medications were prescribed to the patient: Hydrocodone/APAP 5mg/325mg: take 1 to 2 orally every 6 hours as needed for pain. Dispense fifteen (15). No refills. -- Mario Kim MD Cipro 500 mg: take 1 tab orally every 12 hours for 10 days. No refills. Substitution is permissible.(18 pills to finish the coursse started in the ER. Take the 1st tablet of this prescription on the morning of October 08) -- Mario Kim MD
--- NOTE | 2016-10-15 01:12 | ED MAR SUMMARY ---
..... Medication Administration Record [facility] [address] [place] [address] Patient: PANDA SNYDER Visit ID: [id number] 46y, F Weight: 145.1 kg Height/Length: 72 in BMI: 43.4 ALLERGIES: Dilaudid, Headache medications, Morphine and Related, Pain medications, Valium Start 02:43 10/07/2016 Mounika Oliver R.N., Stop 04:20 10/07/2016 Mounika Oliver R.N. Medication Administered: IV NS (SALINE), Dose: IV Fluids, Rate: 1000 mL/hr, Bolus: 500 mL, Dispensed: 1000 mL bag, Site: #1 right hand. Medication Ordered: IV NS : initial bolus 500 mL (1000 mL/hr), then 125 mL/hr for 4h (NOW); Urgent. Given 03:23 10/07/2016 Mounika Oliver R.N. Medication Administered: LEVAQUIN [PO] (LEVOFLOXACIN), Dose: 750 mg Tablets PO. Medication Ordered: Levaquin PO 750 mg (NOW).
--- NOTE | 2016-10-15 01:12 | ED MED RECONCILIATION SUMMARY ---
Patient: PANDA SNYDER Medication Reconciliation Report [facility] VisitID: [id number] [place] [address] 46y, F Registration Date/Time: 10/07/2016 Weight: 145.1 kg Height/Length: 72 in. BMI: 43.4 ALLERGIES: Dilaudid, Headache medications, Morphine and Related, Pain medications, Valium The patient's Home Medications are listed below: THE FOLLOWING MEDICATIONS NEED TO BE RECONCILED: Albuterol-Ipratropium Inhalation Aspir-81 Oral daily Co Q-10 Oral Garlic Oral Metoprolol 25mg at bedtime PredniSONE Oral Vitamins/Minerals Oral The source(s) of the original Home Medication information: Not obtained. The following Medications were given to the patient in the Emergency Department: IV NS IV Fluids bolus 500 mL, then 1000 mL/hr, administered: 10/07/2016 2:43:00 AM Levaquin [PO] PO 750 mg, administered: 10/07/2016 3:23:00 AM The following Medications were prescribed to the patient: Hydrocodone/APAP 5mg/325mg: take 1 to 2 orally every 6 hours as needed for pain. Dispense fifteen (15). No refills. -- Mario Kim MD Cipro 500 mg: take 1 tab orally every 12 hours for 10 days. No refills. Substitution is permissible.(18 pills to finish the coursse started in the ER. Take the 1st tablet of this prescription on the morning of October 08) -- Mario Kim MD
--- NOTE | 2016-10-15 01:12 | ED DISCHARGE INSTRUCTIONS ---
Patient: PANDA SNYDER General Instructions [facility] VisitID: [id number] [place] [address] 46y, F Registration Date/Time: 10/07/2016 Acute pyelonephritis INSTRUCTIONS No driving or operating machinery while taking medication. Drink plenty of fluids. (call your ENT surgeon this morning and inform them that you are being treated for pyelonephritis. Ask them if this will affect your scheduled sinus surgery as discussed.). Warnings: Further evaluation is necessary. GENERAL WARNINGS: Return or contact your physician immediately if your condition worsens or changes unexpectedly, if not improving as expected, or if other problems arise. Prescription Medications: Hydrocodone/APAP 5mg/325mg: take 1 to 2 orally every 6 hours as needed for pain. Dispense fifteen (15). No refills. Cipro 500 mg: take 1 tab orally every 12 hours for 10 days. No refills. Substitution is permissible. (18 pills to finish the coursse started in the ER. Take the 1st tablet of this prescription on the morning of Thursday, October 08) Follow-up: Follow up with your doctor tomorrow. Call for the next available appointment. Understanding of the discharge instructions verbalized by patient. ADDITIONAL INFORMATION Kidney Infection [Adult, Female] An infection of the kidney is also called "pyelonephritis". It usually starts as a bladder infection ("cystitis") which spreads to the kidneys. Pyelonephritis is more serious than a bladder infection. It can cause severe illness if not treated properly. The usual symptoms include an aching pain in the back, side or lower abdomen. Other symptoms may include fever, chills, nausea, vomiting, an urge to urinate and a burning sensation when passing urine. Home Care: Stay home from work or school. Rest in bed until your fever breaks and you are feeling better. Drink lots of fluid (at least 6-8 glasses a day, unless you must restrict fluids for other medical reasons). This will force the medicine into your urinary system and flush the bacteria out of your body. Avoid sexual intercourse until you have finished all of your medicine and your symptoms have gone away. Avoid caffeine, alcohol and spicy foods which may irritate the kidney and bladder. You may use acetaminophen (Tylenol) or ibuprofen (Motrin, Advil) to control pain, unless another pain medicine was prescribed. [NOTE: If you have chronic liver or kidney disease or ever had a stomach ulcer or GI bleeding, talk with your doctor before using these medicines.] Follow Up with your doctor or as advised by our staff for a repeat urine test in 10 days. This will ensure that your infection is fully cleared. [NOTE: If you had an X-ray or CT scan, it will be reviewed by a specialist. You will be notified of any new findings that may affect your care.] Get Prompt Medical Attention if any of the following occur: Fever over 100.4F (38.0C) after 48 hours of treatment No improvement by the third day of treatment Increasing back or abdominal pain Repeated vomiting or inability to take oral medicine Weakness, dizziness or fainting Hydrocodone Bitartrate, Acetaminophen Oral tablet What is this medicine? ACETAMINOPHEN; HYDROCODONE (a set a YANIQUE kika fen; laureano droe KOE done) is a pain reliever. It is used to treat mild to moderate pain. How should I use this medicine? Take this medicine by mouth. Swallow it with a full glass of water. Follow the directions on the prescription label. If the medicine upsets your stomach, take the medicine with food or milk. Do not take more than you are told to take. Talk to your heater operator helper regarding the use of this medicine in children. This medicine is not approved for use in children. What side effects may I notice from receiving this medicine? Side effects that you should report to your doctor or health health care consultant as soon as possible: allergic reactions like skin rash, itching or hives, swelling of the face, lips, or tongue breathing problems confusion feeling faint or lightheaded, falls stomach pain yellowing of the eyes or skin Side effects that usually do not require medical attention (report to your doctor or health health care consultant if they continue or are bothersome): nausea, vomiting stomach upset What may interact with this medicine? alcohol antihistamines isoniazid medicines for depression, anxiety, or psychotic disturbances medicines for sleep muscle relaxants naltrexone narcotic medicines (opiates) for pain phenobarbital ritonavir tramadol What if I miss a dose? If you miss a dose, take it as soon as you can. If it is almost time for your next dose, take only that dose. Do not take double or extra doses. Where should I keep my medicine? Keep out of the reach of children. This medicine can be abused. Keep your medicine in a safe place to protect it from theft. Do not share this medicine with anyone. Selling or giving away this medicine is dangerous and against the law. Store at room temperature between 15 and 30 degrees C (59 and 86 degrees F). Protect from light. Keep container tightly closed. Throw away any unused medicine after the expiration date. Discard unused medicine and used packaging carefully. Pets and children can be harmed if they find used or lost packages. What should I tell my health care provider before I take this medicine? They need to know if you have any of these conditions: brain tumor Crohn's disease, inflammatory bowel disease, or ulcerative colitis drink more than 3 alcohol-containing drinks per day drug abuse or addiction head injury heart or circulation problems kidney disease or problems going to the bathroom liver disease lung disease, asthma, or breathing problems an unusual or allergic reaction to acetaminophen, hydrocodone, other opioid analgesics, other medicines, foods, dyes, or preservatives or trying to get breast-feeding What should I watch for while using this medicine? Tell your doctor or health health care consultant if your pain does not go away, if it gets worse, or if you have new or a different type of pain. You may develop tolerance to the medicine. Tolerance means that you will need a higher dose of the medicine for pain relief. Tolerance is normal and is expected if you take the medicine for a long time. Do not suddenly stop taking your medicine because you may develop a severe reaction. Your body becomes used to the medicine. This does NOT mean you are addicted. Addiction is a behavior related to getting and using a drug for a non-medical reason. If you have pain, you have a medical reason to take pain medicine. Your doctor will tell you how much medicine to take. If your doctor wants you to stop the medicine, the dose will be slowly lowered over time to avoid any side effects. You may get drowsy or dizzy when you first start taking the medicine or change doses. Do not drive, use machinery, or do anything that may be dangerous until you know how the medicine affects you. Stand or sit up slowly. There are different types of narcotic medicines (opiates) for pain. If you take more than one type at the same time, you may have more side effects. Give your health care provider a list of all medicines you use. Your doctor will tell you how much medicine to take. Do not take more medicine than directed. Call emergency for help if you have problems breathing. The medicine will cause constipation. Try to have a bowel movement at least every 2 to 3 days. If you do not have a bowel movement for 3 days, call your doctor or health health care consultant. Too much acetaminophen can be very dangerous. Do not take Tylenol (acetaminophen) or medicines that contain acetaminophen with this medicine. Many non-prescription medicines contain acetaminophen. Always read the labels carefully. Ciprofloxacin Hydrochloride Oral tablet What is this medicine? CIPROFLOXACIN (sip pamela FLOX a sin) is a quinolone antibiotic. It is used to treat certain kinds of bacterial infections. It will not work for colds, flu, or other viral infections. How should I use this medicine? Take this medicine by mouth with a glass of water. Follow the directions on the prescription label. Take your medicine at regular intervals. Do not take your medicine more often than directed. Take all of your medicine as directed even if you think your are better. Do not skip doses or stop your medicine early. You can take this medicine with food or on an empty stomach. It can be taken with a meal that contains dairy or calcium, but do not take it alone with a dairy product, like milk or yogurt or calcium-fortified juice. A special MedGuide will be given to you by the pharmacist with each prescription and refill. Be sure to read this information carefully each time. Talk to your heater operator helper regarding the use of this medicine in children. Special care may be needed. What side effects may I notice from receiving this medicine? Side effects that you should report to your doctor or health health care consultant as soon as possible: - allergic reactions like skin rash, itching or hives, swelling of the face, lips, or tongue - breathing problems - confusion, nightmares or hallucinations - feeling faint or lightheaded, falls - irregular heartbeat - joint, muscle or tendon pain or swelling - pain or trouble passing urine -persistent headache with or without blurred vision - redness, blistering, peeling or loosening of the skin, including inside the mouth - seizure - unusual pain, numbness, tingling, or weakness Side effects that usually do not require medical attention (report to your doctor or health health care consultant if they continue or are bothersome): - diarrhea - nausea or stomach upset - white patches or sores in the mouth What may interact with this medicine? Do not take this medicine with any of the following medications: cisapride droperidol terfenadine tizanidine This medicine may also interact with the following medications: antacids caffeine cyclosporin didanosine (ddI) buffered tablets or powder medicines for diabetes medicines for inflammation like ibuprofen, naproxen methotrexate multivitamins omeprazole phenytoin probenecid sucralfate theophylline warfarin What if I miss a dose? If you miss a dose, take it as soon as you can. If it is almost time for your next dose, take only that dose. Do not take double or extra doses. Where should I keep my medicine? Keep out of the reach of children. Store at room temperature below 30 degrees C (86 degrees F). Keep container tightly closed. Throw away any unused medicine after the expiration date. What should I tell my health care provider before I take this medicine? They need to know if you have any of these conditions: -bone problems -cerebral disease -joint problems -irregular heartbeat -kidney disease -liver disease -myasthenia gravis -seizure disorder -tendon problems -an unusual or allergic reaction to ciprofloxacin, other antibiotics or medicines, foods, dyes, or preservatives - or trying to get -breast-feeding What should I watch for while using this medicine? Tell your doctor or health health care consultant if your symptoms do not improve. Do not treat diarrhea with over the counter products. Contact your doctor if you have diarrhea that lasts more than 2 days or if it is severe and watery. You may get drowsy or dizzy. Do not drive, use machinery, or do anything that needs mental alertness until you know how this medicine affects you. Do not stand or sit up quickly, especially if you are an older patient. This reduces the risk of dizzy or fainting spells. This medicine can make you more sensitive to the sun. Keep out of the sun. If you cannot avoid being in the sun, wear protective clothing and use sunscreen. Do not use sun lamps or tanning beds/booths. Avoid antacids, aluminum, calcium, iron, magnesium, and zinc products for 6 hours before and 2 hours after taking a dose of this medicine. You have been given the following additional information: Pyelonephritis, Female (Adult) Hydrocodone Bitartrate, Acetaminophen Oral tablet Ciprofloxacin Hydrochloride Oral tablet No driving or operating machinery while taking medication. (Electronically signed by Mario Kim MD 10/15/2016 1:12)
== END 2016-10-07 04:11 | disposition home or self-care (01) ==
LOC: ED SRH 02:08
DX: N10 Acute pyelonephritis (principal); I10 Essential (primary) hypertension; Z79.899 Other long term (current) drug therapy; Z79.82 Long term (current) use of aspirin; Z88.8 Allergy status to other drugs, medicaments and biological substances
CPT/HCPCS: 90004; 90100; 90148; 90469; 92235; 92530; 95059